=== PATIENT | female | born 1940 | race Caucasian/White ===

== ENCOUNTER 2018-07-24 06:44 | Emergency (ER) | payer OTHER ==
[2018-07-24] MEDS ORDERED: FENTANYL CITR 100 MCG/2 ML ONE (07:19)
[2018-07-24] MEDS ORDERED: ONDANSETRON 4 MG/2 ML VIAL ONE (07:20)
[2018-07-24 07:49] LABS: Absolute Lymphocytes (CBC) 0.8 K/uL (0.7-4.9); Absolute Monocytes 0.4 K/uL (0.1-1.3); Absolute Neutrophil 3.6 K/uL (1.8-8.0); Eosinophils % 9.6 % (0-4.4); Hematocrit 42.7 % (36.0-45.0); Lymphocytes % 14.5 % (15.3-44.8); MCH 29.1 pg (27.0-35.0); MCV 88.6 fL (80-100); MPV 10.5 fL (7.6-11.3); Monocytes % 7.4 % (3.3-12.3); Protime INR 0.93; RBC Red Blood Cell Count 4.82 M/uL (3.86-4.86)
[2018-07-24 08:02] LABS: ALT/SGPT 34 U/L (12-78); AST/SGOT 16 U/L (15-37); Albumin 3.1 g/dL (3.4-5.0); Alkaline Phosphatase 83 U/L (45-117); BUN Blood Urea Nitrogen 11 mg/dL (7-18); Bicarbonate 25 mmol/L (21-32); Bilirubin Direct 0.1 mg/dL (0-0.2); Bilirubin Total 0.4 mg/dL (0.2-1.0); Glucose Level 111 mg/dL (74-106); Magnesium 2.1 mg/dL (1.8-2.4); NT PRO-BNP 126 pg/mL (<450); Potassium 4.2 mmol/L (3.5-5.1); Protein, Total 7.1 g/dL (6.4-8.2); Sodium Level 140 mmol/L (136-145); Troponin (Emerg Dept Use Only) < 0.02 ng/mL (0.0-0.045)
[2018-07-24 08:08] LABS: Urine Blood NEGATIVE (NEG); Urine Glucose NEGATIVE (NEG); Urine Protein NEGATIVE (NEG); Urine Specific Gravity 1.015 (1.005-1.030); Urine pH 6.5 (5.0-7.0)
--- NOTE | 2018-07-24 09:20 | EDPHYS ---
Physician Documentation [facility] Name: Shama Boyer Age: 77 yrs Sex: Female : 1940 Arrival Date: 07/24/2018 Time: 06:46 Bed 8 Private MD: Becky Ambrosio C ED Physician Victoriano Barrett HPI: 07/24 07:42 This 77 yrs old Female presents to ER via Ambulatory with complaints of Back jr8 Pain. 07:42 Onset: The symptoms/episode began/occurred acutely, today. Severity of symptoms: At jr8 their worst the symptoms were moderate, in the emergency department the symptoms are unchanged. The patient has not experienced similar symptoms in the past. The patient has not recently seen a physician. Patient stated that she woke up with right sided scapular pain. Stated that it radiated to right shoulder and had numbness of hand. Denies chest pain, shortness of breath, or nausea. Denies injury to shoulder . Historical: - Allergies: 07:03 No Known Allergies; ea - Home Meds: 07:03 "BP pills" [Active]; " cholesterol pill" [Active]; ea - PMHx: 07:03 Hyperlipidemia; Hypertension; ea - PSHx: 07:03 Cholecystectomy; ea - Immunization history:: Adult Immunizations up to date. - Social history:: Smoking status: Patient/guardian denies using tobacco. - Ebola Screening: : No symptoms or risks identified at this time. ROS: 07:42 Eyes: Negative for injury, pain, redness, and discharge, ENT: Negative for injury, jr8 pain, and discharge, Neck: Negative for injury, pain, and swelling, Cardiovascular: Negative for chest pain, palpitations, and edema, Respiratory: Negative for shortness of breath, cough, wheezing, and pleuritic chest pain, Abdomen/GI: Negative for abdominal pain, nausea, vomiting, diarrhea, and constipation, MS/Extremity: Negative for injury and deformity, Skin: Negative for injury, rash, and discoloration, Neuro: Negative for headache, weakness, numbness, tingling, and seizure. 07:42 Back: Positive for pain at rest, pain with movement, radiated pain, of the right scapular area and right subscapular area. Exam: 07:42 Eyes: Pupils equal round and reactive to light, extra-ocular motions intact. Lids and jr8 lashes normal. Conjunctiva and sclera are non-icteric and not injected. Cornea within normal limits. Periorbital areas with no swelling, redness, or edema. ENT: Nares patent. No nasal discharge, no septal abnormalities noted. Tympanic membranes are normal and external auditory canals are clear. Oropharynx with no redness, swelling, or masses, exudates, or evidence of obstruction, uvula midline. Mucous membranes moist. Neck: Trachea midline, no thyromegaly or masses palpated, and no cervical lymphadenopathy. Supple, full range of motion without nuchal rigidity, or vertebral point tenderness. No Meningismus. Cardiovascular: Regular rate and rhythm with a normal S1 and S2. No gallops, murmurs, or rubs. Normal PMI, no JVD. No pulse deficits. Respiratory: Lungs have equal breath sounds bilaterally, clear to auscultation and percussion. No rales, rhonchi or wheezes noted. No increased work of breathing, no retractions or nasal flaring. Abdomen/GI: Soft, non-tender, with normal bowel sounds. No distension or tympany. No guarding or rebound. No evidence of tenderness throughout. Skin: Warm, dry with normal turgor. Normal color with no rashes, no lesions, and no evidence of cellulitis. MS/ Extremity: Pulses equal, no cyanosis. Neurovascular intact. Full, normal range of motion. Neuro: Awake and alert, GCS 15, oriented to person, place, time, and situation. Cranial nerves II-XII grossly intact. Motor strength 5/5 in all extremities. Sensory grossly intact. Cerebellar exam normal. Normal gait. 07:42 Back: pain, that is mild, of the right subscapular area, ROM is normal, normal spinal alignment noted, CVA tenderness, is absent, vertebral tenderness, is not appreciated, muscle spasm, is not present. 09:20 ECG was reviewed by the Attending Physician. [facility] Vital Signs: 07:03 BP 176 / 85; Pulse 77; Resp 18; Temp 97.7; Pulse Ox 99% on R/A; Weight 76.66 kg; Height ea 5 ft. 1 in. (154.94 cm); Pain 5/10; 07:59 BP 150 / 57; Pulse 64; Resp 16; Pulse Ox 95% ; bp 09:00 BP 136 / 65; Pulse 57; Resp 16; Pulse Ox 93% ; bp 07:03 Body Mass Index 31.93 (76.66 kg, 154.94 cm) ea MDM: 06:49 Patient medically screened. [facility] 09:18 Differential diagnosis: chronic back pain, sprain, TN, Abnormal EKG. Data reviewed: [facility] vital signs, nurses notes, lab test result(s), EKG, radiologic studies, plain films. Data interpreted: Pulse oximetry: on room air is 95 %. Interpretation: normal. Counseling: I had a detailed discussion with the patient and/or guardian regarding: the historical points, exam findings, and any diagnostic results supporting the discharge/admit diagnosis, lab results, radiology results, the need for outpatient follow up, a family practitioner, to return to the emergency department if symptoms worsen or persist or if there are any questions or concerns that arise at home. Response to treatment: the patient's symptoms have markedly improved after treatment. 07/24 07:05 Order name: Basic Metabolic Panel; Complete Time: 09:03 [facility] 07/24 07:05 Order name: CBC with Diff; Complete Time: 09:03 [facility] 07/24 07:05 Order name: LFT's; Complete Time: 09:03 [facility] 07/24 07:05 Order name: Magnesium; Complete Time: 09:03 [facility] 07/24 07:05 Order name: NT PRO-BNP; Complete Time: 09:03 [facility] 07/24 07:05 Order name: PT-INR; Complete Time: 09:03 [facility] 07/24 07:05 Order name: Troponin (emerg Dept Use Only); Complete Time: 09:03 [facility] 07/24 07:05 Order name: XRAY Chest (1 view) [facility] 07/24 07:05 Order name: EKG; Complete Time: 07:06 [facility] 07/24 07:05 Order name: Cardiac monitoring; Complete Time: 07:32 [facility] 07/24 07:05 Order name: EKG - Nurse/Tech; Complete Time: 07: [facility] 07/24 07:58 Order name: Urine Dipstick--Ancillary (enter results); Complete Time: 09:03 07/24 07:05 Order name: IV Saline Lock; Complete Time: 07:32 [facility] 07/24 07:05 Order name: Labs collected and sent; Complete Time: 07:32 jr8 07/24 07:05 Order name: O2 Per Protocol; Complete Time: jr8 07/24 07:05 Order name: O2 Sat Monitoring; Complete Time: 8 EC:20 Rate is 67 beats/min. Rhythm is regular, Normal Sinus Rhythm. QRS [place] is Normal. [place] jr8 interval is normal at 186 msec. QRS interval is prolonged at 132 msec. QT interval is normal at 436 msec. No Q waves. T waves are Inverted in leads III, aVF, V1, V2, V3. No ST changes noted. Clinical impression: NSR w/ Non-specific ST/T Changes. Interpreted by me. Reviewed by me. Administered Medications: 07:15 Drug: fentaNYL (PF) 25 mcg Route: IVP; Site: right forearm; bp 07:42 Follow up: Response: Pain is decreased bp 07:15 Drug: Zofran 4 mg Route: IVP; Site: right forearm; bp 07:42 Follow up: Response: Pain is decreased bp Disposition: 19:06 Co-signature as Attending Physician, Victoriano Barrett MD. rn Disposition: 07/24/18 09:19 Discharged to Home. Impression: Muscle spasm of back. - Condition is Stable. - Discharge Instructions: Muscle Cramps and Spasms, Back Exercises, [id number], Heat Therapy. - Medication Reconciliation Form, Thank You Letter, Antibiotic Education, Prescription Opioid Use form. - Follow up: Becky Ambrosio MD; When: 2 - 3 days; Reason: Recheck today's complaints, Continuance of care, Re-evaluation by your physician. - Problem is new. - Symptoms have improved. Signatures: Dispatcher [employer] EDMS Victoriano Barrett MD MD rn Roszak, Josh, PA PA jr8 Missy Rosa RN RN ea Peltier, Brian RN RN bp Corrections: (The following items were deleted from the chart) 09:30 09:19 07/24/2018 09:19 Discharged to Home. Impression: Muscle spasm of back. Condition bp is Stable. Forms are Medication Reconciliation Form, Thank You Letter, Antibiotic Education, Prescription Opioid Use. Follow up: Becky Ambrosio; When: 2 - 3 days; Reason: Recheck today's complaints, Continuance of care, Re-evaluation by your physician. Problem is new. Symptoms have improved. jr8
--- NOTE | 2018-07-24 09:20 | ER ---
Nurse's Notes [facility] Name: Shama Boyer Age: 77 yrs Sex: Female : 1940 Arrival Date: 07/24/2018 Time: 06:46 Bed 8 Private MD: Becky Ambrosio C Diagnosis: Muscle spasm of back Presentation: 07/24 06:54 Presenting complaint: Patient states: Pt reports she woke up multiple times last night ea with pain in right side of back. Pt reports cough and right hand numbness. Transition of care: patient was not received from another setting of care. Onset of symptoms was July 24, 2018. Risk Assessment: Do you want to hurt yourself or someone else? Patient reports no desire to harm self or others. Initial Sepsis Screen: Does the patient meet any 2 criteria? No. Patient's initial sepsis screen is negative. Does the patient have a suspected source of infection? No. Patient's initial sepsis screen is negative. Care prior to arrival: aspirin x 2. 06:54 Method Of Arrival: Ambulatory ea 06:54 Acuity: REY 3 ea Triage Assessment: 06:59 General: Appears in no apparent distress. Behavior is calm, cooperative, appropriate ea for age. Pain: Complains of pain in right scapular area, right subscapular area, right mid back and right low back. Neuro: Level of Consciousness is awake, alert, obeys commands, Oriented to person, place, time, situation. Cardiovascular: Patient's skin is warm and dry. Cardiovascular: Denies chest pain. Respiratory: Airway is patent Respiratory effort is even, unlabored, Respiratory pattern is regular, symmetrical. Derm: Skin is pink, warm \\T\\ dry. Musculoskeletal: Circulation, motion, and sensation intact. Historical: - Allergies: 07:03 No Known Allergies; ea - Home Meds: 07:03 "BP pills" [Active]; " cholesterol pill" [Active]; ea - PMHx: 07:03 Hyperlipidemia; Hypertension; ea - PSHx: 07:03 Cholecystectomy; ea - Immunization history:: Adult Immunizations up to date. - Social history:: Smoking status: Patient/guardian denies using tobacco. - Ebola Screening: : No symptoms or risks identified at this time. Screenin:01 Abuse screen: Denies threats or abuse. Nutritional screening: No deficits noted. ea Tuberculosis screening: No symptoms or risk factors identified. Fall Risk None identified. Assessment: 07:00 General: Appears in no apparent distress. comfortable. Pain: Complains of pain in back. bp Neuro: Level of Consciousness is awake, alert, obeys commands, Oriented to person, place, time, situation, Appropriate for age. Cardiovascular: No deficits noted. Respiratory: Airway is patent Respiratory effort is even, unlabored, Respiratory pattern is regular, symmetrical. GI: No signs and/or symptoms were reported involving the gastrointestinal system. : No signs and/or symptoms were reported regarding the genitourinary system. EENT: No deficits noted. Derm: No deficits noted. Musculoskeletal: Circulation, motion, and sensation intact. Range of motion: intact in all extremities. 09:00 Reassessment: ALL CURRENT ORDERS COMPLETED, VS STABLE, RESULTS PENDING. bp 09:29 Reassessment: PT D/C HOME AMBULATORY WITH FAMILY, DX WITH MUSCLE SPASM. bp Vital Signs: 07:03 BP 176 / 85; Pulse 77; Resp 18; Temp 97.7; Pulse Ox 99% on R/A; Weight 76.66 kg; Height ea 5 ft. 1 in. (154.94 cm); Pain 5/10; 07:59 BP 150 / 57; Pulse 64; Resp 16; Pulse Ox 95% ; bp 09:00 BP 136 / 65; Pulse 57; Resp 16; Pulse Ox 93% ; bp 07:03 Body Mass Index 31.93 (76.66 kg, 154.94 cm) ea ED Course: 06:46 Patient arrived in ED. es 06:46 Becky Ambrosio MD is Private Physician. es 06:49 [facility] jr[facility] 06:49 Victoriano Barrett MD is Attending Physician. jr8 06:59 Triage completed. ea 07:04 Kavon Justice, RN is Primary Nurse. bp 07:04 Patient has correct armband on for positive identification. Bed in low position. Call ea light in reach. Side rails up X 1. 07:05 Arm band placed on right wrist. Patient placed in an exam room, on a stretcher, on ea pulse oximetry. 07:10 Inserted saline lock: 20 gauge in right forearm, using aseptic technique. bp 07:26 X-ray completed. Portable x-ray completed in exam room. Patient tolerated procedure ag1 well. 07:27 XRAY Chest (1 view) In Process Unspecified. EDMS 07:34 EKG done, by traffic engineering technician. reviewed by Hernando CAMPOS. 3 09:19 Becky Ambrosio MD is Referral Physician. jr8 09:29 No provider procedures requiring assistance completed. IV discontinued, intact, bp bleeding controlled, No redness/swelling at site. Pressure dressing applied. Administered Medications: 07:15 Drug: fentaNYL (PF) 25 mcg Route: IVP; Site: right forearm; bp 07:42 Follow up: Response: Pain is decreased bp 07:15 Drug: Zofran 4 mg Route: IVP; Site: right forearm; bp 07:42 Follow up: Response: Pain is decreased bp Outcome: 09:19 Discharge ordered by . jr8 09:30 Discharged to home ambulatory, with family. bp 09:30 Condition: stable 09:30 Discharge instructions given to patient, Instructed on discharge instructions, follow up and referral plans. Demonstrated understanding of instructions, follow-up care. 09:30 Patient left the ED. bp Signatures: Dispatcher [employer] EDKS Ludmila Hameed Josh, PA PA jr8 Amaya Yang ag1 Missy Rosa, RN RN Kavon Smith, RN RN Vianney Nguyễn 3
--- NOTE | 2018-07-24 10:16 | EKG ---
Test Date: 2018-07-24 Test Time: 07:27:19 Labor Arbitrator Hearing Office: [facility] MEASUREMENT RESULTS: Intervals: Rate: 67 WV: 186 QRSD: 132 QT: 436 QTc: 460 [place]: P: 47 WV: 186 QRS: -73 T: -14 INTERPRETIVE STATEMENTS: Normal sinus rhythm Left axis deviation Right bundle branch block Abnormal ECG Compared to ECG 07/22/2015 05:59:42 no significant change from previous ECG Electronically Signed On 07-24-18 10:15:57 RN URGENT CARE by Lucas Wallace
--- NOTE | 2018-07-24 10:22 | RAD REPORT ---
EXAM DESCRIPTION: RAD - Chest Single View - 07/24/2018 7:28 am CLINICAL HISTORY: CHEST PAIN Chest pain. COMPARISON: CHEST SINGLE VIEW dated 07/22/2015; CHEST SINGLE VIEW dated 07/21/2015; CHEST PA AND LAT 2 VIEW dated 05/23/2015; CHEST PA AND LAT 2 VIEW dated 10/03/2014 FINDINGS: Portable technique limits examination quality. The lungs are grossly clear. The heart is normal in size. No displaced fractures. IMPRESSION: No acute intrathoracic process suspected.
== END 2018-07-24 09:30 | disposition home or self-care (01) ==
LOC: ER 06:44
DX: M62.830 Muscle spasm of back (principal); I10 Essential (primary) hypertension; E78.5 Hyperlipidemia, unspecified
CPT/HCPCS: 36415; 71045; 80048; 80076; 81003; 83735; 83880; 84484; 85025; 85610; 93005; 96374; 96375; 99284; J2405; J3010

== ENCOUNTER 2019-01-23 12:16 | Emergency (ER) | payer OTHER ==
[2019-01-23 13:09] LABS: Absolute Lymphocytes (CBC) 1.2 K/uL (0.7-4.9); Absolute Monocytes 0.8 K/uL (0.1-1.3); Absolute Neutrophil 3.4 K/uL (1.8-8.0); Basophils % 1.1 % (0-1.3); Eosinophils % 6.4 % (0-4.4); Hematocrit 40.3 % (36.0-45.0); MPV 10.1 fL (7.6-11.3); Monocytes % 13.1 % (3.3-12.3); RBC Red Blood Cell Count 4.59 M/uL (3.86-4.86)
[2019-01-23] MEDS ORDERED: LEVALBUTEROL 1.25 MG/3 ML NEB ONE (13:21)
[2019-01-23] MEDS ORDERED: METHYLPREDNISOLONE 125 MG INJ ONE (13:21)
[2019-01-23] MEDS ORDERED: NA CHLORIDE 0.9% 1,000 ML ONE (13:21)
[2019-01-23] MEDS ORDERED: AZITHROMYCIN 250 MG TAB ONE (13:21)
[2019-01-23] MEDS ORDERED: IPRATROPIUM BROM 0.5MG/2.5ML ONE (13:21)
[2019-01-23] MEDS ORDERED: CEFTRIAXONE/SWI 1gm 1 GM/10 ML SYR ONE (13:21)
--- NOTE | 2019-01-23 13:22 | RAD REPORT ---
EXAM DESCRIPTION: RAD - Chest Single View - 01/23/2019 1:08 pm CLINICAL HISTORY: COUGH Chest pain. COMPARISON: Chest Single View dated 07/24/2018; CHEST SINGLE VIEW dated 07/22/2015; CHEST SINGLE VIE W dated 07/21/2015; CHEST PA AND LAT 2 VIEW dated 05/23/2015 FINDINGS: Portable technique limits examination quality. The lungs are grossly clear. The heart is normal in size. No displaced fractures. IMPRESSION: No acute intrathoracic process suspected.
[2019-01-23 13:31] LABS: ALT/SGPT 91 U/L (12-78); AST/SGOT 74 U/L (15-37); Albumin 2.9 g/dL (3.4-5.0); Alkaline Phosphatase 123 U/L (45-117); BUN Blood Urea Nitrogen 11 mg/dL (7-18); Bicarbonate 25 mmol/L (21-32); Bilirubin Direct 0.2 mg/dL (0-0.2); Bilirubin Total 0.8 mg/dL (0.2-1.0); Glucose Level 92 mg/dL (74-106); NT PRO-BNP 228 pg/mL (<450); Potassium 3.9 mmol/L (3.5-5.1); Protein, Total 7.2 g/dL (6.4-8.2); Sodium Level 140 mmol/L (136-145); Troponin (Emerg Dept Use Only) < 0.02 ng/mL (0.0-0.045)
[2019-01-23 13:38] LABS: Protime INR 1.15
--- NOTE | 2019-01-23 14:01 | EDPHYS ---
Physician Documentation [facility] Name: Shama Boyer Age: 78 yrs Sex: Female : 1940 Arrival Date: 01/23/2019 Time: 12:17 Bed 5 Private MD: Becky Ambrosio C ED Physician Abhishek Lomeli HPI: 01/23 12:47 This 78 yrs old Female presents to ER via Ambulatory with complaints of willy Cough, Shortness Of Breath. 12:47 The patient or guardian reports cough, difficulty breathing, flu symptoms, arthralgias, willy low-grade fever, myalgias. Onset: The symptoms/episode began/occurred 2 day(s) ago. Severity of symptoms: At their worst the symptoms were mild. Modifying factors: The symptoms are alleviated by nothing, the symptoms are aggravated by nothing. Associated signs and symptoms: The patient has no apparent associated signs or symptoms. The patient has not experienced similar symptoms in the past. Historical: - Allergies: 12:38 No Known Allergies; iw - Home Meds: 12:38 "BP pills" daily [Active]; iw - PMHx: 12:38 Hyperlipidemia; Hypertension; iw - PSHx: 12:38 Cholecystectomy; Tubal ligation; iw - Immunization history:: Adult Immunizations not up to date. - Social history:: Smoking status: Patient/guardian denies using tobacco. - Ebola Screening: : Patient negative for fever greater than or equal to 101.5 degrees Fahrenheit, and additional compatible Ebola Virus Disease symptoms Patient denies exposure to infectious person Patient denies travel to an Ebola-affected area in the 21 days before illness onset No symptoms or risks identified at this time. ROS: 12:48 Constitutional: Negative for fever, chills, and weight loss, Eyes: Negative for injury, willy pain, redness, and discharge, ENT: Negative for injury, pain, and discharge, Neck: Negative for injury, pain, and swelling, Cardiovascular: Negative for chest pain, palpitations, and edema, Abdomen/GI: Negative for abdominal pain, nausea, vomiting, diarrhea, and constipation, Back: Negative for injury and pain, : Negative for injury, bleeding, discharge, and swelling, MS/Extremity: Negative for injury and deformity, Skin: Negative for injury, rash, and discoloration, Neuro: Negative for headache, weakness, numbness, tingling, and seizure, Psych: Negative for depression, anxiety, suicide ideation, homicidal ideation, and hallucinations, Allergy/Immunology: Negative for hives, rash, and allergies, Endocrine: Negative for neck swelling, polydipsia, polyuria, polyphagia, and marked weight changes. 12:48 Respiratory: Positive for cough, shortness of breath, wheezing, expiratory. 12:48 MS/extremity: Negative for acute changes. Exam: 12:48 Constitutional: This is a well developed, well nourished patient who is awake, alert, willy and in no acute distress. Head/Face: Normocephalic, atraumatic. Eyes: Pupils equal round and reactive to light, extra-ocular motions intact. Lids and lashes normal. Conjunctiva and sclera are non-icteric and not injected. Cornea within normal limits. Periorbital areas with no swelling, redness, or edema. ENT: Nares patent. No nasal discharge, no septal abnormalities noted. Tympanic membranes are normal and external auditory canals are clear. Oropharynx with no redness, swelling, or masses, exudates, or evidence of obstruction, uvula midline. Mucous membranes moist. Neck: Trachea midline, no thyromegaly or masses palpated, and no cervical lymphadenopathy. Supple, full range of motion without nuchal rigidity, or vertebral point tenderness. No Meningismus. Chest/axilla: Normal chest wall appearance and motion. Nontender with no deformity. No lesions are appreciated. Cardiovascular: Regular rate and rhythm with a normal S1 and S2. No gallops, murmurs, or rubs. Normal PMI, no JVD. No pulse deficits. Respiratory: Lungs have equal breath sounds bilaterally, clear to auscultation and percussion. No rales, rhonchi or wheezes noted. No increased work of breathing, no retractions or nasal flaring. Abdomen/GI: Soft, non-tender, with normal bowel sounds. No distension or tympany. No guarding or rebound. No evidence of tenderness throughout. Back: No spinal tenderness. No costovertebral tenderness. Full range of motion. Female : Normal external genitalia. Skin: Warm, dry with normal turgor. Normal color with no rashes, no lesions, and no evidence of cellulitis. MS/ Extremity: Pulses equal, no cyanosis. Neurovascular intact. Full, normal range of motion. Neuro: Awake and alert, GCS 15, oriented to person, place, time, and situation. Cranial nerves II-XII grossly intact. Motor strength 5/5 in all extremities. Sensory grossly intact. Cerebellar exam normal. Normal gait. 12:48 Musculoskeletal/extremity: ROM: no acute changes, intact in all extremities, Circulation is intact in all extremities. Pulses: are normal with no appreciated deficits, Sensation intact. Compartment Syndrome exam of affected extremity: is normal. DVT Exam: No signs of deep vein thrombosis. no pain, no swelling, no tenderness, negative Homans' sign noted on exam, no appreciated bluish discoloration, no erythema, no increased warmth. Vital Signs: 12:39 BP 134 / 73; Pulse 80; Resp 18 S; Temp 99.5(TE); Pulse Ox 97% on R/A; Weight 77.11 kg; iw Height 5 ft. 0 in. (152.40 cm); Pain 0/10; 13:39 BP 145 / 69; Pulse 69; Resp 18; Pulse Ox 99% on Nebulizer Mask; hj 12:39 Body Mass Index 33.20 (77.11 kg, 152.40 cm) iw MDM: 12:31 Patient medically screened. [facility] 12:50 Data reviewed: vital signs, nurses notes, lab test result(s), EKG, radiologic studies, [facility] plain films. 01/23 12:47 Order name: Basic Metabolic Panel; Complete Time: 13:59 EDSD 01/23 12:47 Order name: CBC with Automated Diff; Complete Time: 13:59 EDSD 01/23 12:47 Order name: Basic Metabolic Panel [facility] 01/23 12:47 Order name: CBC with Diff [facility] 01/23 12:47 Order name: Liver (Hepatic) Function; Complete Time: 13:59 EDSD 01/23 12:47 Order name: Magnesium; Complete Time: 13:59 EDSD 01/23 12:47 Order name: LFT's [facility] 01/23 12:47 Order name: Magnesium [facility] 01/23 12:47 Order name: NT PRO-BNP; Complete Time: 13:59 [facility] 01/23 12:47 Order name: PT-INR; Complete Time: 13:59 [facility] 01/23 12:47 Order name: Troponin (emerg Dept Use Only); Complete Time: 13:59 [facility] 01/23 12:47 Order name: XRAY Chest (1 view); Complete Time: 13:59 [facility] 01/23 12:47 Order name: Blood Culture Adult (2) [facility] 01/23 12:48 Order name: Flu; Complete Time: 13:59 [facility] 01/23 12:47 Order name: EKG; Complete Time: 12:48 [facility] 01/23 12:47 Order name: Cardiac monitoring; Complete Time: 12:49 [facility] 01/23 12:47 Order name: EKG - Nurse/Tech; Complete Time: 13:04 [facility] 01/23 12:47 Order name: IV Saline Lock; Complete Time: 13:04 [facility] 01/23 12:47 Order name: Labs collected and sent; Complete Time: 13:04 [facility] 01/23 12:47 Order name: O2 Per Protocol; Complete Time: 12:49 [facility] 01/23 12:47 Order name: O2 Sat Monitoring; Complete Time: 12:49 [facility] Administered Medications: 13:00 Drug: NS 0.9% 1000 ml Route: IV; Rate: 125 ml/hr; Site: right antecubital; 14:22 Follow up: IV Status: Order to discontinue infusion; IV Intake: 200ml 13:00 Drug: Xopenex 2.5 mg Route: Inhalation; hj 13:00 Drug: AtroVENT Aerosol 0.5 mg Route: Inhalation; hj 13:00 Drug: SOLU-Medrol 125 mg Route: IVP; Site: right antecubital; hj 13:23 Follow up: Response: No adverse reaction 13:31 Drug: Rocephin - (cefTRIAXone) 1 grams Route: IVPB; Infused Over: 30 mins; Site: right hj antecubital; 14:00 Follow up: IV Status: Completed infusion; IV Intake: 10ml 13:31 Drug: Zithromax 500 mg Route: PO; 13:34 Follow up: Response: No adverse reaction Disposition: 01/23/19 14:00 Discharged to Home. Impression: Acute upper respiratory infection, unspecified, Cough. - Condition is Fair. - Discharge Instructions: Acetaminophen Dosage Chart, Pediatric, Upper Respiratory Infection, Adult, Cool Mist Vaporizer, Upper Respiratory Infection, Adult, Wbtl-sm-Tfui, Cough, Adult, Remk-ny-Spoe, Cough, Adult. - Prescriptions for Medrol (Augustine) 4 mg Oral Tablets, Dose Pack - take 1 tablet by ORAL route as directed - follow package instructions; 1 packet. Albuterol Sulfate 90 mcg/actuation - inhale 1-2 puff by INHALATION route every 4-6 hours; 1 Inhaler. Guaifenesin AC 10- 100 mg/5 mL Oral Liquid - take 10 milliliters by ORAL route every 6 hours As needed; 160 milliliter. Zithromax 500 mg Oral Tablet - take 1 tablet by ORAL route once daily for 4 days; 4 tablet. - Medication Reconciliation Form, Thank You Letter, Antibiotic Education, Prescription Opioid Use form. - Follow up: Becky Ambrosio MD; When: 2 - 3 days; Reason: Recheck today's complaints, Continuance of care, Re-evaluation by your physician. - Problem is new. - Symptoms have improved. Signatures: Dispatcher [employer] EDMS Abhishek Lomeli MD MD cha Williams, Irene, RN RN Reji Eason RN RN Corrections: (The following items were deleted from the chart) 14:22 14:00 01/23/2019 14:00 Discharged to Home. Impression: Acute upper respiratory hj infection, unspecified; Cough. Condition is Fair. Forms are Medication Reconciliation Form, Thank You Letter, Antibiotic Education, Prescription Opioid Use. Follow up: Becky Ambrosio; When: 2 - 3 days; Reason: Recheck today's complaints, Continuance of care, Re-evaluation by your physician. Problem is new. Symptoms have improved. willy
--- NOTE | 2019-01-23 14:01 | ER ---
Nurse's Notes [facility] Name: Shama Boyer Age: 78 yrs Sex: Female : 1940 Arrival Date: 01/23/2019 Time: 12:17 Bed 5 Private MD: Becky Ambrosio C Diagnosis: Acute upper respiratory infection, unspecified;Cough Presentation: 01/23 12:34 Presenting complaint: Patient states: productive cough since Friday, no fever, cough is iw worse at night, also feels mild SOB and just doesn't feel good. Transition of care: patient was not received from another setting of care. Onset of symptoms was January 17, 2019. Risk Assessment: Do you want to hurt yourself or someone else? Patient reports no desire to harm self or others. Initial Sepsis Screen: Does the patient meet any 2 criteria? No. Patient's initial sepsis screen is negative. Does the patient have a suspected source of infection? No. Patient's initial sepsis screen is negative. Care prior to arrival: None. 12:34 Method Of Arrival: Ambulatory iw 12:34 Acuity: REY 3 iw Triage Assessment: 13:14 General: Appears in no apparent distress. uncomfortable, Behavior is calm, cooperative, hj appropriate for age. Respiratory: Reports shortness of breath cough that is Onset: The symptoms/episode began/occurred yesterday, the patient has mild shortness of breath. Historical: - Allergies: 12:38 No Known Allergies; iw - Home Meds: 12:38 "BP pills" daily [Active]; iw - PMHx: 12:38 Hyperlipidemia; Hypertension; iw - PSHx: 12:38 Cholecystectomy; Tubal ligation; iw - Immunization history:: Adult Immunizations not up to date. - Social history:: Smoking status: Patient/guardian denies using tobacco. - Ebola Screening: : Patient negative for fever greater than or equal to 101.5 degrees Fahrenheit, and additional compatible Ebola Virus Disease symptoms Patient denies exposure to infectious person Patient denies travel to an Ebola-affected area in the 21 days before illness onset No symptoms or risks identified at this time. Screenin:00 Abuse screen: Denies threats or abuse. Denies injuries from another. Nutritional hj screening: No deficits noted. Tuberculosis screening: No symptoms or risk factors identified. Fall Risk None identified. Assessment: 13:00 Pain: Denies pain. Cardiovascular: Rhythm is regular. Respiratory: Airway is patent hj Respiratory effort is even, unlabored, Respiratory pattern is regular, symmetrical, Breath sounds are clear bilaterally. 13:00 General: Appears in no apparent distress. comfortable, Behavior is calm, cooperative, hj appropriate for age. Neuro: Level of Consciousness is awake, alert, obeys commands, Oriented to person, place, time, situation, Appropriate for age. GI: No signs and/or symptoms were reported involving the gastrointestinal system. : No signs and/or symptoms were reported regarding the genitourinary system. EENT: No signs and/or symptoms were reported regarding the EENT system. Derm: No signs and/or symptoms reported regarding the dermatologic system. Musculoskeletal: No signs and/or symptoms reported regarding the musculoskeletal system. 13:39 Reassessment: Patient and/or family updated on plan of care and expected duration. Pain hj level reassessed. Patient is alert, oriented x 3, equal unlabored respirations, skin warm/dry/pink. breathing tx ongoing;. Vital Signs: 12:39 BP 134 / 73; Pulse 80; Resp 18 S; Temp 99.5(TE); Pulse Ox 97% on R/A; Weight 77.11 kg; iw Height 5 ft. 0 in. (152.40 cm); Pain 0/10; 13:39 BP 145 / 69; Pulse 69; Resp 18; Pulse Ox 99% on Nebulizer Mask; hj 12:39 Body Mass Index 33.20 (77.11 kg, 152.40 cm) iw ED Course: 12:17 Patient arrived in ED. rg4 12:18 Becky Ambrosio MD is Private Physician. rg4 12:27 Reji Eason, SANDRA is Primary Nurse. hj 12:31 Abhishek Lomeli MD is Attending Physician. willy 12:37 Triage completed. iw 12:39 Arm band placed on. iw 13:00 Patient has correct armband on for positive identification. Placed in gown. Bed in low hj position. Call light in reach. Side rails up X 1. Adult w/ patient. 13:00 Initial lab(s) drawn, by me, sent to lab. First set of blood cultures drawn by me. hj 13:05 Initial lab(s) drawn, by ED staff, sent to lab. EKG done, by ED staff, reviewed by ms Abhishek Lomeli MD. 13:07 XRAY Chest (1 view) In Process Unspecified. EDMS 13:12 Flu Sent. 13:12 Inserted saline lock: 20 gauge in right antecubital area, using aseptic technique. hj Blood collected. 13:59 Becky Ambrosio MD is Referral Physician. [facility] 14:21 No provider procedures requiring assistance completed. IV discontinued, intact, hj bleeding controlled, No redness/swelling at site. Pressure dressing applied. Administered Medications: 13:00 Drug: NS 0.9% 1000 ml Route: IV; Rate: 125 ml/hr; Site: right antecubital; hj 14:22 Follow up: IV Status: Order to discontinue infusion; IV Intake: 200ml hj 13:00 Drug: Xopenex 2.5 mg Route: Inhalation; hj 13:00 Drug: AtroVENT Aerosol 0.5 mg Route: Inhalation; hj 13:00 Drug: SOLU-Medrol 125 mg Route: IVP; Site: right antecubital; hj 13:23 Follow up: Response: No adverse reaction hj 13:31 Drug: Rocephin - (cefTRIAXone) 1 grams Route: IVPB; Infused Over: 30 mins; Site: right hj antecubital; 14:00 Follow up: IV Status: Completed infusion; IV Intake: 10ml hj 13:31 Drug: Zithromax 500 mg Route: PO; hj 13:34 Follow up: Response: No adverse reaction hj Intake: 14:00 IV: 10ml; Total: 10ml. hj 14:22 IV: 200ml; Total: 210ml. Outcome: 14:00 Discharge ordered by . [facility] 14:21 Discharged to home ambulatory, with family. 14:21 Condition: stable 14:21 Discharge instructions given to patient, family, Instructed on discharge instructions, follow up and referral plans. medication usage, Demonstrated understanding of instructions, follow-up care, medications, Prescriptions given X 4. 14:22 Patient left the ED. Signatures: Dispatcher [employer] Abhishek Carvajal MD MD cha Williams, Irene, RN Magda Gates ms, Henry, RN RN hj Garcia, Rubi rg4
--- NOTE | 2019-01-24 10:09 | EKG ---
Test Date: 2019-01-23 Test Time: 12:57:03 Smt Machine Operator: MEASUREMENT RESULTS: Intervals: Rate: 74 DC: 178 QRSD: 136 QT: 412 QTc: 457 Ursa: P: 37 DC: 178 QRS: -75 T: 5 INTERPRETIVE STATEMENTS: Sinus rhythm with premature supraventricular complexes Left axis deviation Right bundle branch block Abnormal ECG Compared to ECG 07/24/2018 07:27:19 Atrial premature complex(es) now present Electronically Signed On 01-24-19 10:05:56 CDT by Asad Enamorado
== END 2019-01-23 14:22 | disposition home or self-care (01) ==
LOC: ER 12:16
DX: J06.9 Acute upper respiratory infection, unspecified (principal); E78.5 Hyperlipidemia, unspecified; I10 Essential (primary) hypertension
CPT/HCPCS: 96365; 96361; 93005; 87040 ×2; 85025; 80048; 36415; 83735; 85610; 80076; 84484; 83880; 87804 ×2; 71045; 96375; 99284; J0696; J7030; J2930

== ENCOUNTER 2021-01-22 10:54 | Day surgery (SDC) | payer OTHER ==
[2021-01-18 13:56] LABS: Potassium 4.6 mmol/L (3.5-5.1)
[2021-01-18 14:16] LABS: Basophils % 0.5 % (0-1.3); Hematocrit 37.3 % (36.0-45.0); Lymphocytes % 16.1 % (15.3-44.8); MPV 10.5 fL (7.6-11.3); RBC Red Blood Cell Count 4.18 M/uL (3.86-4.86)
[2021-01-18 14:18] LABS: Protime INR 0.97
[~2021-01-22 10:54] MED LIST: HEPA 1000U/500MLS 2,000 UNIT/1,000 ML BAG IV ONE
[2021-01-22] MEDS ORDERED: NA CHLORIDE 0.9% 500 ML ONE (11:26)
[2021-01-22 11:39] VITALS: TEMP 97
[2021-01-22] MEDS ORDERED: ATROPINE SULF 1 MG/10 ML SYR IV ONE (12:30)
[2021-01-22] MEDS ORDERED: VERAPAMIL HCL 10 MG/4 ML VIAL IV ONE (12:30)
[2021-01-22] MEDS ORDERED: HEPARIN 5000 UNIT/ML 1 ML VIAL ONE (12:30)
[2021-01-22] MEDS ORDERED: NITROGLYCERIN 100 MCG/ML SYR (for cath lab use only) IV ONE (12:30)
[2021-01-22] MEDS ORDERED: MIDAZOLAM HCL 2 MG/2 ML INJ ONE (12:30)
[2021-01-22] MEDS ORDERED: FENTANYL CITR 100 MCG/2 ML ONE (12:30)
[2021-01-22] MEDS ORDERED: NITROGLYCERIN/D5W 25 MG/250 ML BTL IV ONE (12:31)
[2021-01-22 15:05] VITALS: BP 111/54; O2SAT 97
--- NOTE | 2021-01-22 22:32 | OP ---
Date of Procedure: 01/22/2021 Surgeon: MADALYN DUKE Procedures Performed: 1.Selective coronary angiogram. 2.Left heart catheterization. 3.Right heart catheterization. Indication: Persistent dyspnea on exertion, limiting her activities. Description Of Procedure: After risks, benefits, and alternatives were explained, the patient agreed to procedure and signed informed consent. We brought the patient to the cardiac catheterization lab oratory, prepped and draped in usual sterile fashion, then accessed the right IJ using ultrasound elsy dance and micropuncture kit, and placed a 7-Sammarinese sheath and then accessed the right radial artery u sing ultrasound and pediatric micropuncture kit and placed a 6-Sammarinese slender sheath. Then proceeded with a right heart catheterization by passing 7-Sammarinese balloon tip [place] into the RA through the righ t IJ and recorded waveform of pressure, then RV waveform of pressure were recorded and then advanced to the PA and recorded PA waveform of pressure and then took a PA set. Then, advanced the wedge and wedge pressure of waveform and then the [place] was removed. Subsequently, we took a 5-Sammarinese [place] 4.0 catheter into the aortic root through the radial artery over a J-wire, engaged left main and right c oronary artery, took standard views and then removed the catheter and the sheath, and placed TR band with good hemostasis. A 7-Sammarinese sheath removed, it was removed from the IJ and manual pressure was applied with good hemostasis. Findings: 1.Left main, large and normal. 2.LAD, moderate-sized vessel is normal and all the diagonals are normal. 3.Left circumflex, small vessel, normal. 4.RCA, dominant vessel and it is normal. We passed the [place] catheter over the wire into the LV across the aortic valve, recorded LVEDP at 11 mmHg and upon pullback, there was no difference in gradient. Right Heart Catheterization Results: RA pressure was 4. IV pressure was 36/1, mean of 5, PA pressur e was 25, overlying mean of 16, pulmonary wedge was 6, LVEDP was 11 mmHg. Conclusion: 1.Normal coronary arteries. 2.Normal filling pressures. Recommendations: Medical management and look for other reasons for shortness of breath, like COPD. We will refer the patient to Pulmonary. SR/MODL Voice ID: [id number] Report ID: [id number]
== END 2021-01-22 15:10 | disposition home or self-care (01) ==
LOC: CCL 10:54
PROVIDERS: ATTEND Internal Medicine
DX: R06.00 Dyspnea, unspecified (principal); I11.0 Hypertensive heart disease with heart failure; I50.32 Chronic diastolic (congestive) heart failure; E78.5 Hyperlipidemia, unspecified; Z20.822 Contact with and (suspected) exposure to COVID-19
CPT/HCPCS: 93005; 85025; 80048; 36415; 85610; 85730; 93460; C1893; J1644 ×2; J2250; J3010; J7040; U0002

== ENCOUNTER 2021-10-11 17:51 | Inpatient (IN) | payer OTHER ==
--- OUTSIDE RECORDS SUMMARY | 2021-10-11 19:15 | XMS REPORT | Continuity of Care Document ---
:1940 Author Organization [facility] t Address [address] [place] [address] Care Team Providers Name Role Phone Phillip Ambrosio Primary Care Physician Becky FIGUEROA Attending Clinician Unavailable Therapy, Covid Infusion Attending Clinician Unavailable Henry DALEY, Becky Attending Clinician Payers Payer Name Policy Type Policy Number Effective Date Expiration Date Jose Martin barclay MEDICARE PART A [id number] 2003 \T\ B 00:00:00 Problems This patient has no known problems. Allergies, Adverse Reactions, Alerts Allergy Allergy Status Severity Reaction(s) Onset Inactive Treating Comm ents Source Name Type Date Date Clinician NO KNOWN Drug Active [facility] ALLERGIE Class ity of [facility] Social History Social Habit Start Date Stop Date Quantity Comments Source Sex Assigned At [birth year] [facility] 00:00:00 00:00:00 [facility] Smoking Status Start Date Stop Date Source Unknown if ever smoked [facility] Medications Ordered Filled Start Stop Current Ordering Indication Dosage Frequency Signature Comments Components Source Medication Medication Date Date Medication? Clinician (SIG) Name Name casirivimab 2020- No [id number] 1200mg 1,200 mg, Univers -imdevimab 04-26 IV ity of 1200 mg in 22:30: 21:45 Infusion, [place] 60 mL NS 00 :00 ONCE, Medical MINI-BAG Administer Branc h over 20 Minutes, Ana 04/26/21 at 1730, For 1 dose
Ad rehabilitation aide/scheduler as an IV infusion via pump or gravity through an intravenou s line containing a sterile, in-line or add-on 0.2-micron polyethers ulfone (PES) filter. Stable 36 hours refrigerat ed; 4 hours at room temperatur e.
casirivimab 2020- No [id number] 1200mg 1,200 mg, [facility] -imdevimab 04-26 IV ity of 1200 mg in 22:30: 21:45 Infusion, [place] 60 mL NS 00 :00 ONCE, Medical MINI-BAG Administer Branc h over 20 Minutes, Ana 04/26/21 at 1730, For 1 dose
Ad rehabilitation aide/scheduler as an IV infusion via pump or gravity through an intravenou s line containing a sterile, in-line or add-on 0.2-micron polyethers ulfone (PES) filter. Stable 36 hours refrigerat ed; 4 hours at room temperatur e.
Vital Signs Vital Name Observation Time Observation Value Comments Source Systolic blood 2021-04-26 22:40:00 130 mm[facility]Hg[facility] Diastolic blood 2021-04-26 22:40:00 62 mm[facility]Hg[facility] rate 2021-04-26 22:40:00 89 /min [facility] Body temperature 2021-04-26 22:40:00 36.17 [facility] Respiratory rate 2021-04-26 22:40:00 20 /min [facility] Oxygen saturation in 2021-04-26 22:40:00 95 /min [facility] Pulse oximetry [place] Body height 2021-04-26 21:24:00 152.4 cm [facility] Body weight 2021-04-26 21:24:00 70.308 kg [facility] BMI 2021-04-26 21:24:00 30.27 kg/m2 [facility] Procedures This patient has no known procedures. Encounters Start End Encounter Admission Attending Care Care Encounter Source Date/Time Date/Time Type Type Clinicians Facility Department ID 2021-04-26 2021-04-26 Outpatient Nilam FIGUEROA [facility] [id number] [facility] 15:30:00 15:30:00 [facility] 2021-04-26 2021-04-26 Nurse Therapy, Adc Covid Infusion [facility] [id number] [facility] 14:29:20 15:29:20 Visit Butch Figueroa [id number] porsha [facility] [id number] [facility] [id number] [facility] [address] Results This patient has no known results.
[2021-10-11 20:20] VITALS: BMI 30.3
[2021-10-11 21:25] LABS: Absolute Lymphocytes (CBC) 1.1 K/uL (0.7-4.9); Hematocrit 39.6 % (36.0-45.0); Lymphocytes % 17.7 % (15.3-44.8); MPV 10.3 fL (7.6-11.3); RBC Red Blood Cell Count 4.52 M/uL (3.86-4.86)
--- NOTE | 2021-10-11 21:55 | RAD REPORT ---
EXAM DESCRIPTION: RAD - Chest Pa And Lat (2 Views) - 10/11/2021 9:14 pm CLINICAL HISTORY: Afib COMPARISON: Chest Pa And Lat (2 Views) dated 10/20/2020; Chest Single View dated 01/23/2019; Chest Sin gle View dated 07/24/2018; CHEST SINGLE VIEW dated 07/22/2015 FINDINGS: Lines: None. Lungs: No evidence of edema or pneumonia. Pleural: No significant pleural effusions or pneumothorax. Cardiac: The heart size is within normal limits. Bones: No acute fractures. Kyphoplasty changes in the lower thoracic spine. Other: IMPRESSION: No acute cardiopulmonary disease.
[2021-10-11 22:31] LABS: Bilirubin Total 0.4 mg/dL (0.2-1.0); Phosphorus 3.3 mg/dL (2.5-4.9); Potassium 3.8 mmol/L (3.5-5.1); Protein, Total 6.6 g/dL (6.4-8.2)
[2021-10-11 22:32] LABS: Thyroid Stimulating Hormone 4.11 uIU/mL (0.360-3.740)
[2021-10-11] MEDS: DIGOXIN 0.25 MG/ML AMP IV SCH (22:51)
[2021-10-11] MEDS: carvediloL 6.25 MG TAB PO SCH (22:52)
[2021-10-11] MEDS: APIXABAN 5 MG TABLET PO SCH (22:54)
[2021-10-12] MEDS ORDERED: INFLUENZA VACCINE (for 6+ mo) 0.5 ML DOSE IMVAC ONE (08:00)
[2021-10-12] MEDS ORDERED: PNEUMOCOCCAL VACCINE 0.5 ML IMVAC ONE (08:00)
[2021-10-12 08:30] LABS: BUN Blood Urea Nitrogen 21 mg/dL (7-18); Bicarbonate 26 mmol/L (21-32); Glucose Level 96 mg/dL (74-106); Sodium Level 139 mmol/L (136-145)
[2021-10-12] MEDS ORDERED: POTASSIUM CL SA 10 MEQ TAB PO ONE (09:00)
[2021-10-12] MEDS: carvediloL 6.25 MG TAB PO SCH (09:08)
[2021-10-12] MEDS: APIXABAN 5 MG TABLET PO SCH ×2 (09:08→21:20)
[2021-10-12] MEDS ORDERED: predniSONE 10 MG TAB PO ONE (10:08)
[2021-10-12] MEDS ORDERED: HOME MED 1 EA UNK (Fluticasone/Vilanterol [Breo Ellipta 200-25 Mcg Inh] Blst.W.Dev) IH SCH (11:00)
[2021-10-12 17:10] LABS: Magnesium 1.7
[2021-10-12] MEDS: SOTALOL HCL 80 MG TAB PO SCH (18:10)
[2021-10-12] MEDS: DIGOXIN 0.25 MG/ML AMP IV SCH (21:00)
[2021-10-12] MEDS ORDERED: ATORVASTATIN 20 MG TAB PO SCH (21:00)
--- NOTE | 2021-10-12 21:37 | CON ---
Date of Consultation: 10/12/2021 Reason For Consultation: New onset atrial fibrillation. History Of Present Illness: 81-year-old female, well known to me, has a diastolic congestive heart f ailure, hypertension, and possible COPD or asthma. She was evaluated by Dr. Ambrosio in the office where she was found to be in atrial fibrillation with rapid ventricular response. She was sent to the [facility] and the patient always has shortness of breath on exertion and she is being followed by Pulmona fermin and myself and she has been on diuretics, but symptoms can get worse periodically and she denies h aving any chest pain or palpitations. Past Medical History: As outlined above in the HPI. Medications: Refer reconciliation sheet for detailed list. Allergies: NO KNOWN DRUG ALLERGIES. Family History: No premature coronary artery disease or cancer. Social History: Does not smoke or drink. Does not use any drugs. Review of Systems: All systems reviewed and they were negative except as mentioned in the HPI. Physical Examination: Vital Signs: Reviewed. Head and Neck: Pupils are equal and reactive to light. Intact eye movements. No JVD. No cervical lymphadenopathy. Neck: Supple. Thyroid is not enlarged. Lungs: Clear to auscultation bilaterally. No rhonchi, rales, or crackles. No accessory muscle use. Heart: Irregularly irregular. No extra sounds. Abdomen: Soft and nontender. Bowel sounds positive. No organomegaly. No masses or hernia. No rig idity or rebound. Extremities: No edema, clubbing, or cyanosis. Intact pulses. Skin: No rashes. Neurologic: Neuro: Alert, awake, oriented x3. No acute focal deficits appreciated. Investigation: Labs reviewed. Assessment And Recommendations: 1.New onset atrial fibrillation. Recommend to start sotalol 80 mg twice a day and hold Coreg. Cont inue Eliquis and if need be to control the heart rate, then use metoprolol IV 5 mg every 1 hour as ne eded. 2.Shortness of breath, likely due to diastolic heart failure. Continue diuretics. Thank you for the consult. /MILLIE Voice ID: [id number] Report ID: [id number]
--- NOTE | 2021-10-13 04:03 | HP ---
Date of Admission: 10/11/2021 Chief Complaint: Cough, shortness of breath. History Of Present Illness: This is an 81-year-old very pleasant female patient who came into office today for regular followup visit and she informed me that she has this ongoing cough, some chest con gestion and shortness of breath going on for last almost 1 year or so. She has been seeing Dr. Jenny beasley from Pulmonary Service as well as Dr. Duque from Cardiology. She has had workup done so far for her cough, shortness of breath and she was told to have some diastolic congestive heart failure and she has been taking diuretic medication and beta moe therapy as prescribed and also inhaler, whic h is Breo as prescribed by Dr. Lea, and so far her symptoms have not improved at all. On 2021, she had acute bronchitis type of symptoms and she was treated with antibiotics, which was amoxicillin and she was given 9 days of tapering dose of prednisone and when she came to see me toda y she informed me that when she took that prednisone, that is the best relief she had with her cough, congestion, and shortness of breath problem, but after she stopped her prednisone slowly, her sympto ms have returned. Today, when she came to office, we detected that her heart rate was 132 per minute , irregular, and she was not aware of this. She does not have any chest pain or palpitations. No di zziness and decision was made to admit her to hospital for further evaluation and management of this new-onset atrial fibrillation Allergies: NO KNOWN ALLERGIES. Medications: 1.Atorvastatin 20 mg daily. 2.Breo 1 puff daily. 3.Amlodipine 5 mg daily. 4.Aspirin 81 mg daily. 5.Carvedilol 3.125 mg 2 times a day. 6.Furosemide 20 mg daily. 7.Losartan 100 mg daily. 8.Spironolactone 25 mg daily. 9.Albuterol inhaler as needed. Review of Systems: Respiratory: As mentioned above. All other systems reviewed and negative. Past Medical History: Significant for impaired fasting glucose, hypertension, hyperlipidemia, chroni c diastolic heart failure, gastroesophageal reflux disease, diverticulosis, thrombocytopenia, depress ion. Past Surgical History: Tonsillectomy, tubal ligation, D and C, kyphoplasty in June 2020, and arth roscopic knee surgery. Family History: Father had hypertension and in motor vehicular accident. Mother and had c oronary artery disease. Brother with pancreatic cancer. Social History: Prior history of smoking, not at present time. Use of alcohol, negative. Physical Examination: VITAL SIGNS: Height 5 feet, weight 155 pounds, temperature 97.6, pulse 88, respiratory rate 18, bloo d pressure 102/72, oxygen saturation 95% on room air, but at office, heart rate was 132, irregularly irregular. General: Awake, alert, oriented, not in distress. HEENT: Head atraumatic, normocephalic. Conjunctivae nonerythematous. Sclerae white. Mouth, no thr ush or edema noted. Ears/Nose, no mass, lesion, discharge noted. Neck: Supple. No JVD, lymph nodes, bruit, thyromegaly noted. Lungs: Bilateral good equal air entry. Clear to auscultation. No rhonchi. No rales. Heart: Normal heart sounds, no murmur or gallop. Abdomen: Soft, bowel sounds normal. No guarding, rigidity, tenderness, mass, hepatosplenomegaly, dis tention, or bruit noted. Extremities: No leg edema. No calf tenderness. Skin: No rash, ulcer, cellulitis. Lymphatics: No lymph node enlargement in neck, supraclavicular, infraclavicular region. Neuro: No focal neurological deficit. Chest: Unremarkable. External Genitalia: Deferred. Rectal: Deferred. Laboratory Data: EKG; atrial fibrillation with rapid ventricular rate. White count 6, hemoglobin 12 .6, platelets 233. Sodium 139, potassium 3.8, chloride 106, bicarb 26, BUN 21, creatinine 0.82, gluc ose 101. Liver function tests unremarkable. ProBNP 1279. TSH 4.1. COVID-19 test negative. Chest x-ray, no acute cardiopulmonary changes. Impression: 1.Atrial fibrillation, new onset, with rapid ventricular rate. 2.Hypertension. 3.Chronic diastolic heart failure. 4.Hyperlipidemia. 5.Impaired fasting glucose. 6.Rule out asthma. 7.Gastroesophageal reflux disease. 8.Diverticulosis. Plan: We will go ahead and admit the patient to hospital for further evaluation and management of th is problem. The patient is appropriate for inpatient and [facility] I will go ahead and increase dose of her carvedilol to 6.25 mg 2 times a day, digoxin 0.25 mg IV x1 dose was ordered to be given tonight and we will start the patient on anticoagulation therapy ryan [place]. I did discuss with her regarding risks, benefits of anticoagulation therapy with atrial f ibrillation. We will consult Cardiology, get echo with Doppler done tomorrow morning and we will con tinue home medications per order. Details and plan of treatment discussed with the patient. NORM/MILLIE Voice ID: [id number]
[2021-10-13] MEDS: SOTALOL HCL 80 MG TAB PO SCH ×2 (06:09→18:33)
[2021-10-13] MEDS ORDERED: Fluticasone/Vilanterol [Breo Ellipta 200-25 Mcg Inh] Blst.W.Dev IH SCH (09:00)
[2021-10-13] MEDS ORDERED: predniSONE 10 MG TAB PO SCH (09:00)
[2021-10-13] MEDS: APIXABAN 5 MG TABLET PO SCH (09:06)
--- NOTE | 2021-10-13 14:19 | PN ---
Date of Progress Note: 10/12/2021 Subjective: Patient was seen this morning for followup. She was lying in bed, not in any distress. No new complaints or problems reported by her. Objective: Vital Signs: Reviewed. HEENT: Examination unremarkable. Lungs: Clear to auscultation. Not in any respiratory distress. Heart: Sounds normal. Abdomen: Soft. Bowel sounds normal. No guarding, rigidity, tenderness, or distention. Extremities: No leg edema. Laboratory Data: Sodium 139, potassium 4, chloride 108, bicarb 26, BUN 21, creatinine 0.60. Glucose 96. Impression: 1.Atrial fibrillation. 2.Chronic cough. 3.Hypertension. 4.Hyperlipidemia. 5.Rule out asthma. 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 Duque did evaluate her and communicated with me and recommended f or the patient to be started on sotalol and we will discontinue carvedilol. Patient is already on El iquis, which was started yesterday and we will continue that. Plan is to discharge her to go home to [place] after 3 doses of sotalol and we will go ahead and monitor her on telemetry and also get an EKG done tomorrow. I have discussed with her regarding the risk, benefit of chronic steroid therapy and considering it has provided her great relief with recent use, she is willing to take low-dose prednisone as a maintenance therapy and we will start 10 mg lala y. NORM/MODL Voice ID: [id number] Report ID: [id number]
[2021-10-13 16:37] VITALS: BP 128/77; TEMP 97.3
--- NOTE | 2021-10-13 17:57 | PN ---
Date of Progress Note: 10/13/2021 Subjective: Seen by bedside. She is doing clinically better. No chest pain. Minimum shortness of breath is present. No nausea, vomiting, or diarrhea. No abdominal pain. No dysuria, pyuria, or urg ency. All other systems reviewed and they are negative. Physical Examination: Vital Signs: Reviewed. Head and Neck: Pupils are equal and reactive to light. Intact eye movements. No JVD. No cervical lymphadenopathy. Neck is supple. Thyroid is not enlarged. Lungs: Rhonchi bilaterally. No accessory muscle use. No muscle retraction. Heart: Irregularly irregular. No extra sounds. Abdomen: Soft, nontender. Bowel sounds positive. No organomegaly. No masses or hernia. No rigidi ty or rebound. Extremities: No clubbing or cyanosis. Intact pulses. Skin: No rashes. Neurologic: Alert, awake, and oriented x3. No acute focal deficits appreciated. Investigations: White blood cell count 6, hemoglobin 12.6, and platelet count is 233. Sodium 139, B UN 21, and creatinine 0.6. Assessment And Recommendations: 1.Atrial fibrillation, rate is controlled, now on sotalol. Likely she will convert to sinus rhythm. Continue that and continue Eliquis. 2.Shortness of breath, likely due to a hyperreactive airway disease plus a mild case of diastolic he art failure and clinically stable from that regard. Please have the patient follow up with me in the office within a week post dischar ge. HAM/MILLIE Voice ID: [id number] Report ID: [id number]
[2021-10-13 18:37] VITALS: O2SAT 96
--- NOTE | 2021-10-14 07:01 | DS ---
Date of Discharge: 10/13/2021 Disposition: The patient will be discharged to go home. Physical Examination: HEENT: Unremarkable. Lungs: Clear to auscultation. Heart: Heart sounds normal. Abdomen: Soft, bowel sounds normal. No guarding, rigidity, tenderness, or distention. Extremities: No leg edema. Laboratory Data: White count 6, hemoglobin 12.6, platelets 233. Yesterday's chemistry, sodium 139, potassium 4, chloride 108, bicarb 26, BUN 21, creatinine 0.60, glucose 96. Her TSH was 4.1 day befor e yesterday and proBNP 1279. Liver function tests unremarkable. Chest x-ray, no acute cardiopulmona ry changes. EKG, atrial fibrillation with rapid ventricular rate. Final Diagnoses: 1.Atrial fibrillation, new onset, with rapid ventricular rate. 2.Hypertension. 3.Chronic diastolic heart failure. 4.Hyperlipidemia. 5.Impaired fasting glucose. 6.Rule out asthma. 7.Gastroesophageal reflux disease. 8.Diverticulosis. Discharge Medications/instructions: Continue all prior home medications except following changes, 1.Stop amlodipine and stop spironolactone. 2.Start sotalol 80 mg take 1 tablet by mouth 2 times a day. 3.Start Eliquis 5 mg take 1 tablet by mouth 2 times a day. 4.Start prednisone 10 mg take 1 tablet by mouth daily with food. 5.Follow up at my office on , which is 10/18/2021 at 11 a.m. Hospital Course: This is an 81-year-old female patient admitted to the hospital with new-onset atria l fibrillation with rapid ventricular rate. Please see dictated H and P for more information. After patient was evaluated, she was admitted to the hospital and she was kept on athletic monitor. Her initial blood work showed normal electrolytes and renal function. She was seen in consultation by ca rdiologist, Dr. Duque and he suggested to start the patient on sotalol 80 mg 2 times a day and she r eceived her first dose yesterday evening, second dose was this morning, and after she receives her th ird dose this evening, she will be discharged to go home. She continues to remain on telemetry and s till in atrial fibrillation, but her heart rate is well controlled now in 70-80 heart beats per minut e. EKG was done today and results reviewed. Overall, she feels better. Yesterday, I had a discussi on with her regarding long-term use of chronic steroid therapy and long-term use and its side effect discussed with her, but at the same time with her cough and shortness of breath also was d iscussed and she is willing to try that, so we will start her on 10 mg daily and as outpatient we kendall l decide if we can reduce to the lowest possible effective dose for her. Echocardiogram had shown no rmal ejection fraction. If she continues to stay in atrial fibrillation, then in about a month or so electrical cardioversion will be considered by electron gun assembler. The patient was given appropriate inst ruction today when I saw her that she needs to take appropriate precautions to avoid any injury, any cuts on the skin, or any fall or head injury and she should report to emergency room if she has any h ead injury or if she has any bleeding from any skin cuts or any nosebleed or blood in stool, blood in the urine, etc. Appropriate precautions to be taken to avoid any fall and head injury and all those details were discussed with her today. NORM/MODL Voice ID: [id number] Report ID: [id number]
--- NOTE | 2021-10-15 08:53 | ECHO ---
HEIGHT: 5 ft 0 in WEIGHT: 155 lb 3.2 oz DATE OF STUDY: 10/12/[address]: Cresencio Ambrosio MD 2-DIMENSIONAL: YES M.MODE: YES DOPPLER: YES COLOR FLOW: YES TDS: NO PORTABLE: NO DEFINITY: NO BUBBLE STUDY: NO DIAGNOSIS: ATRIAL FIBRILLATION CARDIAC HISTORY: CATHERIZATION: NO SURGERY: NO PROSTHETIC VALVE: NO PACEMAKER: NO MEASUREMENTS (cm) DIASTOLIC (NORMALS) SYSTOLIC (NORMALS) IVSd 1.1 (0.6-1.2) LA Diam 2.1 (1.9-4.0) LVEF 55-60% LVIDd 3.9 (3.5-5.7) LVIDs 2.5 (2.0-3.5) %FS 37% LVPWd 1.1 (0.6-1.2) Ao Diam 2.3 (2.0-3.7) 2 DIMENSIONAL ASSESSMENT: RIGHT ATRIUM: NORMAL LEFT ATRIUM: NORMAL RIGHT VENTRICLE: NORMAL LEFT VENTRICLE: NORMAL TRICUSPID VALVE: MILD TRICUSPID REGURGITATION MITRAL VALVE: MILD MITRAL REGURGITATION, WITH MITRAL ANNULAR CALCIFICATION PULMONIC VALVE: NORMAL AORTIC VALVE: NORMAL PERICARDIAL EFFUSION: NONE AORTIC ROOT: NORMAL LEFT VENTRICULAR WALL MOTION: NORMAL. DOPPLER/COLOR FLOW: SEE BELOW. COMMENTS: NORMAL LEFT VENTRICULAR EJECTION FRACTION 55-60%. ATRIAL FIBRILLATION. MILD MITRAL AND TRICUSPID REGURGITATION. TECHNOLOGIST: TIFFANIE BARCENAS
== END 2021-10-13 18:51 | disposition home or self-care (01) | DRG 309 ==
LOC: 2ND 19:13
PROVIDERS: ADMIT Internal Medicine; ATTEND Internal Medicine
DX: I48.91 Unspecified atrial fibrillation (principal); I50.32 Chronic diastolic (congestive) heart failure; I11.0 Hypertensive heart disease with heart failure; E78.5 Hyperlipidemia, unspecified; K21.9 Gastro-esophageal reflux disease without esophagitis; K57.90 Diverticulosis of intestine, part unspecified, without perforation or abscess without bleeding; Z79.52 Long term (current) use of systemic steroids; J45.909 Unspecified asthma, uncomplicated; Z20.822 Contact with and (suspected) exposure to COVID-19
CPT/HCPCS: 36415; 71046; 80048; 80053; 83735; 83880; 84100; 84439; 84443; 85025; 93005; 93306; J1160; J7512; U0003

== ENCOUNTER 2022-01-01 06:56 | Day surgery (SDC) | payer OTHER ==
[2022-01-01] MEDS ORDERED: Ringers Lactate 1,000 ML IV ONE (07:18)
[2022-01-01] MEDS ORDERED: LIDOCAINE 4% TOP SOLUTION ONE (07:31)
[2022-01-01] MEDS ORDERED: GLYCOPYRROLATE 0.2 MG/ML SYR ONE (07:31)
[2022-01-01] MEDS ORDERED: Phenylephrine HCl 10 MG/ML 1 ML VIAL ONE (07:32)
[2022-01-01] MEDS ORDERED: LIDOCAINE VISCOUS 2% SOLN 15 ML UDC ONE (07:35)
[2022-01-01] MEDS ORDERED: LIDOCAINE 1% MPF 30 ML VIAL ONE (07:35)
[2022-01-01] MEDS ORDERED: FENTANYL CITR 100 MCG/2 ML ONE (07:59)
[2022-01-01] MEDS ORDERED: propofoL 200 MG/20 ML VIAL IV ONE (07:59)
[2022-01-01] MEDS ORDERED: LIDOCAINE 1% MPF 5 ML VIAL ONE (07:59)
--- NOTE | 2022-01-01 08:16 | P.OP ---
Date of Service: 01/01/22 (Bronchoscopy) Findings and Operative Technique Patient is 81 years of age admitted with a chronic cough productive phlegm CT scan showed a partial left lower lobe atelectasis with some bronchiectasis this morning patient told me that her cough is improved sputum cultures AFB negative sputum cultures inadequate so far After obtaining informed consent from the patient she was premedicated by anesthesia findings normal vocal cords normal trachea normal Kathie normal right and left-sided bronchial anatomy no endobronchial lesions visible mucosa was completely normal patient did have purulent secretions predominantly in the right side of her lungs some on the left side regimens were not sent for cultures mild desaturation otherwise she did well
[2022-01-01 09:25] VITALS: BP 132/60; TEMP 97.1; O2SAT 100
== END 2022-01-01 09:15 | disposition home or self-care (01) ==
LOC: OR 06:56
PROVIDERS: ATTEND Internal Medicine Sleep Medicine
PROC: 0BJ08ZZ Inspection of Tracheobronchial Tree, Via Natural or Artificial Opening Endoscopic (ICD-10-PCS; principal; 2022-01-01 08:00)
DX: R05.3 Chronic cough (principal); J98.11 Atelectasis; J47.9 Bronchiectasis, uncomplicated; Z20.822 Contact with and (suspected) exposure to COVID-19
CPT/HCPCS: 31622; U0003; J2704; J2370; J3010; J7120

== ENCOUNTER 2025-06-05 14:48 | Observation (INO) | payer OTHER, BC ==
[2025-06-05] MEDS ORDERED: ASPIRIN EC 81 MG TAB PO ONE (15:09)
[2025-06-05] MEDS ORDERED: NA CHLORIDE 0.9% 500 ML ONE (15:09)
[2025-06-05] MEDS ORDERED: FAMOTIDINE 20 MG/2 ML VIAL IV ONE (15:09)
[2025-06-05 15:31] LABS: Absolute Lymphocytes (CBC) 1.8 K/uL (0.7-4.9); Hematocrit 38.2 % (36.0-45.0); Hemoglobin 12.8 g/dL (12.0-15.0); MCH 29.2 pg (27.0-35.0); MCHC 33.5 g/dL (32.0-36.0); MCV 87.1 fL (80-100); MPV 9.9 fL (7.6-11.3); Nucleated RBC Absolute Count 0.0 (0-0); Nucleated Red Blood Cells % 0.1 % (0-0); RBC Red Blood Cell Count 4.39 M/uL (3.86-4.86); White Blood Count 6.50 thou/uL (4.3-10.9)
[2025-06-05] MEDS ORDERED: FENTANYL CITR 100 MCG/2 ML ONE (15:31)
[2025-06-05] MEDS ORDERED: ONDANSETRON 4 MG/2 ML VIAL ONE ×2 (15:31→15:33)
--- NOTE | 2025-06-05 15:40 | RAD REPORT ---
EXAM: Chest Single View HISTORY: 84 years Female CHEST PAIN COMPARISON: 05/24/2023 FINDINGS: LUNGS/PLEURA: The lungs are clear. No pleural effusions or pneumothorax. No pulmonary edema. CARDIAC/MEDIASTINUM: Moderate hiatal hernia. UPPER ABDOMEN: No significant abnormality. BONES: No acute abnormality. Vertebroplasty changes in the spine. LINES/TUBES/OTHER: N/A IMPRESSION: No evidence of acute cardiopulmonary disease.
[2025-06-05 15:41] LABS: PT Prothrombin Time 15.0 SECONDS (10-13.0); Protime INR 1.34
[2025-06-05 15:52] LABS: ALT/SGPT 24.0 U/L (13-56); AST/SGOT 21.0 U/L (15-37); Albumin 3.0 g/dL (3.4-5.0); Albumin/Globulin Ratio 0.8 (1.1-1.8); Alkaline Phosphatase 76.0 U/L (45-117); Anion Gap 11.0 mEq/L (5.0-15.0); BUN Blood Urea Nitrogen 28.0 mg/dL (7-18); Bilirubin Indirect, Calculated 0.4 mg/dL (0.2-0.8); Globulin 3.9 g/dL (2.3-3.5); Glucose Level 111.0 mg/dL (74-106); Lipase 42.0 U/L (13-75); Magnesium 1.8 mg/dL (1.6-2.4); NT PRO-BNP 519.0 pg/mL (<450); Potassium 4.0 mEq/L (3.5-5.1); Troponin High Sensitivity 6.0 pg/mL (<58.9)
[2025-06-05 16:04] LABS: Sqamous Epithelial None Seen /HPF (None Seen); Urine Culture Reflex Order NOT NEEDED; Urine Microscopic Reflex YN ORDER UMIC
--- NOTE | 2025-06-05 16:06 | ER ---
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 STARTED WHILE EATING LUNCH. db SUDDEN PAIN WITH N/V AND UPPER ABD PAIN. APPEARS IN PAIN. Coronavirus screen: Client denies travel out of the [place] in the last 14 days. At this time, the client does not indicate any symptoms associated with coronavirus-19. Ebola Screen: Patient negative for fever greater than or equal to 101.5 degrees Fahrenheit, and additional compatible Ebola Virus Disease symptoms Patient denies exposure to infectious person. Patient denies travel to an Ebola-affected area in the 21 days before illness onset. No symptoms or risks identified at this time. Initial Sepsis Screen: Does the patient meet any 2 criteria? No. Patient's initial sepsis screen is negative. Does the patient have a suspected source of infection? No. Patient's initial sepsis screen is negative. Risk Assessment: Do you want to hurt yourself or someone else? Patient reports no desire to harm self or others. 14:57 Method Of Arrival: Ambulatory db 14:58 Onset of symptoms was June 05, 2025. db 14:58 Acuity: REY 2 db Triage Assessment: 14:58 General: Appears in no apparent distress. uncomfortable, Behavior is cooperative, db anxious. Pain: Complains of pain in chest and abdomen Pain radiates to chest. Neuro: Level of Consciousness is awake, alert, obeys commands, Oriented to person, place, time, situation. Cardiovascular: Reports chest pain. Historical: - Allergies: 14:58 No Known Allergies; db - PMHx: 14:58 Hyperlipidemia; a fib (Hypertension); Hypertension; db - Immunization history:: Adult Immunizations unknown. - Infectious Disease History:: Denies. - Social history:: Smoking status: Patient denies any tobacco usage or history of. - Family history:: not pertinent. Screenin:20 [facility] ED Fall Risk Assessment (Adult) History of falling in the last 3 months, kj2 including since admission No falls in past 3 months (0 pts) Confusion or Disorientation No (0 pts) Intoxicated or Sedated No (0 pts) Impaired Gait No (0 pts) Mobility Assist Device Used No (0 pt) Altered Elimination No (0 pt) Score/Fall Risk Level 0 - 2 = Low Risk Maintained a safe environment, Hourly rounding (assess needs \T\ fall precautionary measures) done. Abuse screen: Denies threats or abuse. Denies injuries from another. Nutritional screening: No deficits noted. Tuberculosis screening: No symptoms or risk factors identified. Assessment: 15:15 General: Appears in no apparent distress. Behavior is cooperative. Pain: Complains of kj2 pain in abdomen and chest Pain currently is 6 out of 10 on a pain scale. Neuro: Level of Consciousness is awake, alert, obeys commands, Oriented to person, place, time, situation. Cardiovascular: Reports chest pain. Respiratory: Airway is patent Respiratory effort is even, unlabored. GI: Reports nausea. : No signs and/or symptoms were reported regarding the genitourinary system. 15:15 Pain: Pain began 2 hours ago. kj2 16:08 Reassessment: Patient appears in no apparent distress at this time. Patient and/or kj2 family updated on plan of care and expected duration. Pain level reassessed. Patient is alert, oriented x 3, equal unlabored respirations, skin warm/dry/pink. 17:19 Reassessment: Patient appears in no apparent distress at this time. Patient and/or kj2 family updated on plan of care and expected duration. Pain level reassessed. Patient is alert, oriented x 3, equal unlabored respirations, skin warm/dry/pink. Vital Signs: 14:57 BP 154 / 73 LA; Pulse 71; Resp 18; Temp 97.9(O); Pulse Ox 99% ; Weight 65.77 kg; Height db 5 ft. 0 in. ; 14:58 BP 168 / 87 RA; db 15:20 BP 168 / 87; Pulse 71; Resp 20; Pulse Ox 97% on R/A; kj2 16:20 BP 150 / 78; Pulse 71; Resp 18; Pulse Ox 96% ; kj2 17:30 BP 127 / 60; Pulse 66; Resp 20; Pulse Ox 100% on R/A; kj2 14:57 Body Mass Index 28.32 (65.77 kg, 152.40 cm) db ED Course: 14:50 Patient arrived in ED. cj3 14:54 Deisy Murry, RN is Primary Nurse. kj2 14:56 Abhishek Lomeli MD is Attending Physician. [facility] 14:58 Triage completed. db 14:58 Arm band placed on Patient placed in an exam room. db 15:15 Patient has correct armband on for positive identification. Bed in low position. Call kj2 light in reach. Provided Education on: call light. Client placed on continuous cardiac and pulse oximetry monitoring. NIBP monitoring applied. rubber block layer on. Pulse ox on. NIBP on. 15:15 Inserted saline lock: 20 gauge in right antecubital area, using aseptic technique. kj2 Blood collected. Flushed with 10 mL NS. Patient maintains SpO2 saturation greater than 95% on room air. 15:31 XRAY Chest (1 view) In Process Unspecified. EDMS 16:04 Cresencio Ambrosio MD is Hospitalizing Provider. [facility] 16:19 CT Chest, Abdomen, Pelvis - W/Contrast In Process Unspecified. EDMS 17:52 No provider procedures requiring assistance completed. kj2 18:06 Patient admitted, IV remains in place. kj2 Administered Medications: 15:05 Drug: Aspirin PO Chewable Tablet 162 mg PO once Route: PO; kj2 17:50 Follow up: Response: No adverse reaction kj2 15:26 Drug: NS 0.9% IV 500 ml 500 ml IV at 1 bolus once; to be given as a bolus over 30 kj2 minutes Volume: 500 ml; Route: IV; Rate: 1 bolus; Site: right antecubital; 17:50 Follow up: IV Status: Completed infusion; IV Intake: 1000ml kj2 15:26 Drug: Famotidine IVP 20 mg IVP once; dilute with 10 mL 0.9% NaCl; give over 2 minutes kj2 Route: IVP; Site: right antecubital; 17:50 Follow up: Response: No adverse reaction kj2 15:45 Drug: fentaNYL (PF) IVP 25 mcg IVP once Route: IVP; Site: right antecubital; kj2 17:49 Follow up: Response: No adverse reaction kj2 15:45 Drug: Ondansetron IVP 8 mg IVP once; over 2 minutes Route: IVP; Site: right antecubital;kj2 17:49 Follow up: Response: No adverse reaction kj2 17:03 Drug: Rocephin IV 1 grams IV at per protocol once; Given slow IV push per pharmacy kj2 instructions Route: IV; Rate: per protocol; Site: right antecubital; 17:49 Follow up: IV Status: Completed infusion kj2 17:05 Not Given (Patient Refused): fentanyl (pf)25 mcg IVP once kj2 Medication: 17:20 VIS not applicable for this client. kj2 Intake: 17:50 IV: 1000ml; Total: 1000ml. kj2 Outcome: 16:05 Decision to Hospitalize by Provider. willy 18:06 Admitted to Tele accompanied by tech, via stretcher, room 405, kj2 18:06 Condition: stable 18:06 Instructed on the need for admit, 18:06 Patient left the ED. kj2 Signatures: Dispatcher [employer] EDAbhishek Arshad MD MD cha Benton, Danielle, RN RN Deisy Domingo, SANDRA RN kj2 Cheryl Nuñez cj3 Corrections: (The following items were deleted from the chart) 16:08 16:06 BP 168 / 87; Pulse 71bpm; Resp 20bpm; Pulse Ox 97% RA; kj2 kj2
--- NOTE | 2025-06-05 16:06 | EDPHYS ---
Physician Documentation [facility] Name: Shama Boyer Age: 84 yrs Sex: Female : 1940 Arrival Date: 06/05/2025 Time: 14:48 Bed 13 Private MD: ED Physician Abhishek Lomeli HPI: 06/05 15:26 This 84 yrs old Female presents to ER via Ambulatory with complaints of Chest willy Pain, Nausea/Vomiting. 15:26 The patient or guardian reports chest pain that is located primarily in the substernal willy area, anterior chest wall, bilaterally. Onset: just prior to arrival. The pain does not radiate. Associated signs and symptoms: Pertinent positives: abdominal pain, nausea, vomiting. The chest pain is described as a pressure. Modifying factors: The symptoms are alleviated by nothing. the symptoms are aggravated by nothing. Severity of pain: At its worst the pain was moderate in the emergency department the pain is unchanged. The patient has not experienced similar symptoms in the past. Historical: - Allergies: 14:58 No Known Allergies; db - PMHx: 14:58 Hyperlipidemia; a fib (Hypertension); Hypertension; db - Immunization history:: Adult Immunizations unknown. - Infectious Disease History:: Denies. - Social history:: Smoking status: Patient denies any tobacco usage or history of. - Family history:: not pertinent. ROS: 15:26 Constitutional: Negative for fever, chills, and weight loss, Eyes: Negative for injury, willy pain, redness, and discharge, ENT: Negative for injury, pain, and discharge, Neck: Negative for injury, pain, and swelling, Respiratory: Negative for shortness of breath, cough, wheezing, and pleuritic chest pain, Back: Negative for injury and pain, : Negative for injury, bleeding, discharge, and swelling, MS/Extremity: Negative for injury and deformity, Skin: Negative for injury, rash, and discoloration, Neuro: Negative for headache, weakness, numbness, tingling, and seizure, Psych: Negative for depression, anxiety, suicide ideation, homicidal ideation, and hallucinations, Allergy/Immunology: Negative for hives, rash, and allergies, Endocrine: Negative for neck swelling, polydipsia, polyuria, polyphagia, and marked weight changes, Hematologic/Lymphatic: Negative for swollen nodes, abnormal bleeding, and unusual bruising, 15:26 Cardiovascular: Positive for chest pain, with movement, of the chest and abdomen, 15:26 Abdomen/GI: Positive for abdominal pain, nausea and vomiting, Exam: 15:26 Constitutional: This is a well developed, well nourished patient who is awake, alert, willy and in no acute distress. Head/Face: Normocephalic, atraumatic. Eyes: Pupils equal round and reactive to light, extra-ocular motions intact. Lids and lashes normal. Conjunctiva and sclera are non-icteric and not injected. Cornea within normal limits. Periorbital areas with no swelling, redness, or edema. ENT: Nares patent. No nasal discharge, no septal abnormalities noted. Tympanic membranes are normal and external auditory canals are clear. Oropharynx with no redness, swelling, or masses, exudates, or evidence of obstruction, uvula midline. Mucous membranes moist. Neck: Trachea midline, no thyromegaly or masses palpated, and no cervical lymphadenopathy. Supple, full range of motion without nuchal rigidity, or vertebral point tenderness. No Meningismus. Chest/axilla: Normal chest wall appearance and motion. Nontender with no deformity. No lesions are appreciated. Cardiovascular: Regular rate and rhythm with a normal S1 and S2. No gallops, murmurs, or rubs. Normal PMI, no JVD. No pulse deficits. Respiratory: Lungs have equal breath sounds bilaterally, clear to auscultation and percussion. No rales, rhonchi or wheezes noted. No increased work of breathing, no retractions or nasal flaring. Abdomen/GI: Soft, non-tender, with normal bowel sounds. No distension or tympany. No guarding or rebound. No evidence of tenderness throughout. Back: No spinal tenderness. No costovertebral tenderness. Full range of motion. Female : Normal external genitalia. Skin: Warm, dry with normal turgor. Normal color with no rashes, no lesions, and no evidence of cellulitis. MS/ Extremity: Pulses equal, no cyanosis. Neurovascular intact. Full, normal range of motion., bilateral aka Neuro: Awake and alert, GCS 15, oriented to person, place, time, and situation. Cranial nerves II-XII grossly intact. Motor strength 5/5 in all extremities. Sensory grossly intact. Cerebellar exam normal. Normal gait. Psych: Awake, alert, with orientation to person, place and time. Behavior, mood, and affect are within normal limits. 15:26 ECG was reviewed by the Attending Physician. Vital Signs: 14:57 BP 154 / 73 LA; Pulse 71; Resp 18; Temp 97.9(O); Pulse Ox 99% ; Weight 65.77 kg; Height db 5 ft. 0 in. ; 14:58 BP 168 / 87 RA; db 15:20 BP 168 / 87; Pulse 71; Resp 20; Pulse Ox 97% on R/A; kj2 16:20 BP 150 / 78; Pulse 71; Resp 18; Pulse Ox 96% ; kj2 17:30 BP 127 / 60; Pulse 66; Resp 20; Pulse Ox 100% on R/A; kj2 14:57 Body Mass Index 28.32 (65.77 kg, 152.40 cm) db MDM: 14:56 Medical Screening Exam initiated willy 15:30 Differential diagnosis: abnormal EKG, acute myocardial infarction, acute pericarditis, willy anxiety, coronary artery disease chest wall pain, costochondritis, esophagitis, gastritis, herpes zoster, hiatal hernia, pancreatitis, peptic ulcer disease, pericarditis, pleurisy, pneumonia, pneumothorax, pulmonary embolus, stable angina, thoracic aortic disection, unstable angina. HEART Score: History: Slightly Suspicious (0), ECG: Non specific repolarization disturbance / LBTB / PM (1), Age: > or = 65 years (2), Risk Factors: > or = 3 Risk factors for atherosclerotic disease (2), [Hypercholesterolemia] [Hypertension] [+ Family HX] [Obesity] Troponin: < or = 1 x Normal Limit (0). The patient was given aspirin in the Emergency Department. MAGNOLIA Risk Score: 1 - patient's age is greater or equal to 65 years, 1 - Three or more CAD risk factors, 1- Known CAD, 1 - Recent [<24hrs] Severe Angina, TOTAL SCORE = 4. Data reviewed: vital signs, nurses notes, EMS record, lab test result(s), EKG, radiologic studies, CT scan, plain films. Consideration of Admission/Observation Patient was admitted/placed on observation. Escalation of care including admission/observation considered. I considered the following discharge prescriptions or medication management in the emergency department Medications were administered in the Emergency Department. See MAR. Independent interpretation of the following test(s) in the Emergency Department EKG: See my EKG interpretation above. Test considered but Not performed: Ultrasound NO 2 D ECHO. Historians other than the Patient: Spouse/Significant Other: WELL INFORMED. 06/05 14:57 Order name: Basic Metabolic Panel; Complete Time: 16:02 [facility] 06/05 14:57 Order name: CBC with Diff; Complete Time: 16:02 [facility] 06/05 14:57 Order name: LFT's; Complete Time: 16:02 [facility] 06/05 14:57 Order name: Magnesium; Complete Time: 16:02 [facility] 06/05 14:57 Order name: NT PRO-BNP; Complete Time: 16:02 [facility] 06/05 14:57 Order name: PT-INR; Complete Time: 16:02 [facility] 06/05 14:57 Order name: Troponin HS; Complete Time: 16:02 [facility] 06/05 14:57 Order name: Lipase; Complete Time: 16:02 [facility] 06/05 14:57 Order name: UA Rfx Crispin Cult if indicated [facility] 06/05 14:57 Order name: XRAY Chest (1 view); Complete Time: 16:02 [facility] 06/05 15:25 Order name: CT Chest, Abdomen, Pelvis - W/Contrast [facility] 06/05 16:12 Order name: CONS Physician Consult EDTX 06/05 14:57 Order name: Cardiac monitoring; Complete Time: 15:26 [facility] 06/05 14:57 Order name: EKG - Nurse/Tech; Complete Time: 15:26 [facility] 06/05 14:57 Order name: IV Saline Lock; Complete Time: 15:39 [facility] 06/05 14:57 Order name: Labs collected and sent; Complete Time: 15:26 [facility] 06/05 14:57 Order name: O2 Per Protocol; Complete Time: 15:26 [facility] 06/05 14:57 Order name: O2 Sat Monitoring; Complete Time: 15:26 [facility] EC:26 Rate is 69 beats/min. Rhythm is regular. QRS Nelson is Normal. NC interval is normal. QRS willy interval is normal. QT interval is normal. No Q waves. T waves are Normal. T waves are Inverted in leads V1, V2, V3, V4. No ST changes noted. Clinical impression: NSR w/ Non-specific ST/T Changes. Interpreted by me. Reviewed by me. Administered Medications: 15:05 Drug: Aspirin PO Chewable Tablet 162 mg PO once Route: PO; kj2 17:50 Follow up: Response: No adverse reaction kj2 15:26 Drug: NS 0.9% IV 500 ml 500 ml IV at 1 bolus once; to be given as a bolus over 30 kj2 minutes Volume: 500 ml; Route: IV; Rate: 1 bolus; Site: right antecubital; 17:50 Follow up: IV Status: Completed infusion; IV Intake: 1000ml kj2 15:26 Drug: Famotidine IVP 20 mg IVP once; dilute with 10 mL 0.9% NaCl; give over 2 minutes kj2 Route: IVP; Site: right antecubital; 17:50 Follow up: Response: No adverse reaction kj2 15:45 Drug: fentaNYL (PF) IVP 25 mcg IVP once Route: IVP; Site: right antecubital; kj2 17:49 Follow up: Response: No adverse reaction kj2 15:45 Drug: Ondansetron IVP 8 mg IVP once; over 2 minutes Route: IVP; Site: right antecubital;kj2 17:49 Follow up: Response: No adverse reaction kj2 17:03 Drug: Rocephin IV 1 grams IV at per protocol once; Given slow IV push per pharmacy kj2 instructions Route: IV; Rate: per protocol; Site: right antecubital; 17:49 Follow up: IV Status: Completed infusion kj2 17:05 Not Given (Patient Refused): fentanyl (pf)25 mcg IVP once kj2 Disposition Summary: 06/05/25 16:05 Hospitalization Ordered Notes: Hospitalization Status: Observation willy Provider: Cresencio Ambrosio cha [facility] willy Condition: Stable willy Problem: new willy Symptoms: have improved willy Bed/Room Type: Standard willy Room Assignment: 405(06/05/25 16:19) eb Diagnosis - Chest pain, unspecified willy - Nausea with vomiting, unspecified willy - Epigastric abdominal tenderness willy - 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 EDMS EDMS 14:57 14:57 CBC+H.LAB.BRZ ordered. EDMS EDMS 14:57 14:57 HEPATIC FUNCTION+C.LAB.BRZ ordered. EDMS EDMS 14:57 14:57 MAGNESIUM+C.LAB.BRZ ordered. EDMS EDMS 14:57 14:57 PROBNP+C.LAB.BRZ ordered. EDMS EDMS 14:57 14:57 PROTIME (+INR)+COAG.LAB.BRZ ordered. EDMS EDMS 14:57 14:57 Troponin High Sensitivity+C.LAB.BRZ ordered. EDMS EDMS 14:57 14:57 LIPASE+C.LAB.BRZ ordered. EDMS EDMS 14:57 14:57 UA Rfx Crispin Cult if indicated+U.LAB.BRZ ordered. EDMS EDMS 14:57 14:57 Chest Single View+RAD.RAD.BRZ ordered. EDMS EDMS 15:26 15:26 Chest Abdomen Pelvis W Con+CT.RAD.BRZ ordered. EDMS EDMS 16:19 16:05 willy eb
--- NOTE | 2025-06-05 16:38 | RAD REPORT ---
EXAM: Chest Abdomen Pelvis W Cont CLINICAL INDICATION: Female, 84 years CHEST PAIN TECHNIQUE: CT chest, abdomen and pelvis was performed, with IV contrast, as per department protocol. Axial, sagittal and coronal reconstructions were obtained. One or more of the following dose reduction techniques were used: Automated exposure control, adjustment of the mA and/or kV according to the patient size, and/or iterative reconstruction. Unless otherwise specified, incidental findings do not require dedicated imaging follow-up. [id number]. COMPARISON: No prior exams FINDINGS: ---THORAX--- LOWER NECK AND CHEST WALL: Visualized thyroid gland and soft tissues are normal. MEDIASTINUM AND LYMPH NODES: No mediastinal mass or fluid collection. Normal size mediastinal, hilar, and axillary lymph nodes. Moderate to large hiatal hernia. THORACIC AORTA: No thoracic aortic aneurysm. Atherosclerotic changes are present. PULMONARY ARTERIES: Caliber is within normal limits. No pulmonary emboli identified. HEART: Normal heart size. Moderate coronary artery calcifications. No significant pericardial effusio n. Aortic valve and mitral annular calcifications. LUNGS AND AIRWAYS: Airways are clear. No evidence of airspace or interstitial process. No suspicious and/or stable pulmonary nodules. PLEURA: No pleural effusion. No pneumothorax. ---ABDOMEN/PELVIS--- UPPER GI: Duodenal diverticulum noted. LIVER: No significant focal abnormality. GALLBLADDER/BILE DUCTS: Cholecystectomy. Mild extra-hepatic biliary ductal dilatation is likely relat ed to the post-cholecystectomy state. Consider correlating with LFT's.? PANCREAS: No mass, ductal dilation, or angel-pancreatic fluid. SPLEEN: Unremarkable. ADRENALS: No adrenal masses. KIDNEYS AND URETERS: No hydronephrosis.No suspicious renal mass.No renal calculi. No ureteral calculi . ABDOMINAL AORTA AND OTHER VESSELS: Moderate atherosclerotic changes without aortic aneurysm. PERITONEUM: No abnormal free fluid. No free air. LYMPH NODES: No pathologic lymphadenopathy. ABDOMINAL WALL: Small fat containing ventral and right lateral ventral hernia. SMALL BOWEL/COLON: Small bowel has normal course and caliber. No colonic wall thickening or pericolon ic inflammatory changes. Normal appendix. URINARY BLADDER: Underdistended but grossly unremarkable. REPRODUCTIVE ORGANS: No pathologic process. ---COMBINED--- MUSCULOSKELETAL: T12 vertebroplasty. No acute fractures identified. ADDITIONAL FINDINGS: None. IMPRESSION: No acute findings within the chest, abdomen, or pelvis. Moderate to large hiatal hernia.
[2025-06-05] MEDS ORDERED: CEFTRIAXONE 1000 MG/VIAL ONE (16:54)
[2025-06-05 18:21] VITALS: BMI 28.3
[2025-06-05] MEDS ORDERED: ONDANSETRON 4 MG/2 ML VIAL IV PRN (18:22)
[2025-06-05] MEDS ORDERED: MORPHINE 2 MG/ML SYR IV PRN (18:22)
[2025-06-05] MEDS ORDERED: ACETAMINOPHEN 500 MG TAB PO PRN (18:22)
[2025-06-05] MEDS: FAMOTIDINE 20 MG/2 ML VIAL IV SCH (20:38)
[2025-06-05] MEDS: APIXABAN 5 MG TABLET PO SCH (20:38)
[2025-06-05 21:25] VITALS: O2SAT 94
[2025-06-06 07:34] LABS: Absolute Lymphocytes (CBC) 1.4 K/uL (0.7-4.9); Hematocrit 34.5 % (36.0-45.0); Hemoglobin 11.6 g/dL (12.0-15.0); MCH 29.4 pg (27.0-35.0); MCHC 33.7 g/dL (32.0-36.0); MCV 87.4 fL (80-100); MPV 10.4 fL (7.6-11.3); Nucleated RBC Absolute Count 0.0 (0-0); Nucleated Red Blood Cells % 0.1 % (0-0); RBC Red Blood Cell Count 3.95 M/uL (3.86-4.86); White Blood Count 4.40 thou/uL (4.3-10.9)
[2025-06-06 07:53] LABS: Anion Gap 7.9 mEq/L (5.0-15.0); BUN Blood Urea Nitrogen 18.0 mg/dL (7-18); Glucose Level 92.0 mg/dL (74-106); Potassium 3.9 mEq/L (3.5-5.1)
[2025-06-06 08:30] VITALS: TEMP 97.7
[2025-06-06] MEDS: SOTALOL HCL 80 MG TAB PO SCH (08:46)
[2025-06-06] MEDS: LOSARTAN POTASSIUM 50 MG TABLET PO SCH (08:46)
[2025-06-06] MEDS ORDERED: FLU (Fluarix) 25-26 (6MOS UP)/PF 45 MCG/0.5 ML Syringe IM ONE (09:15)
[2025-06-06] MEDS ORDERED: PNEUMOCOCCAL VACCINE 0.5 ML IMVAC ONE (10:00)
--- NOTE | 2025-06-06 10:55 | P.CNS ---
Date of Consult: 06/06/25 Chief Complaint: chest pain History of Present Illness: Patient with PMH of atrial fibrillation, presented with abdominal pain, nausea and vomiting, denies chest pain, no palpitations, no syncope. Allergies No Known Allergies Allergy (Verified 01/01/22 07:59) Home medications list reviewed: Yes Home Medications: Albuterol Sulfate [Ventolin Hfa] 2 puff IH Q6HP PRN 12/31/21 Amlodipine Besylate 5 mg PO DAILY 12/31/21 Apixaban [Eliquis] 5 mg PO BID 12/31/21 Bimatoprost [Lumigan Opthalmic Drops] 1 drop OP BEDTIME 12/31/21 Cetirizine HCl [Zyrtec] 10 mg PO DAILY 12/31/21 Fluticasone/Umeclidin/Vilanter [Trelegy Ellipta 200-62.5-25] 1 each IH DAILY 12/31/21 Furosemide [Lasix*] 20 mg PO DAILY 12/31/21 Montelukast Sodium [Singulair] 10 mg PO DAILY 12/31/21 Pantoprazole [Protonix Tab] 40 mg PO DAILY 12/31/21 Sotalol HCl [Betapace] 80 mg PO BID 12/31/21 Vit C/E/Zn/Coppr/Lutein/Zeaxan [Preservision Areds 2 Softgel] 1 each PO BID 12/31/21 carvediloL [Coreg] 3.125 mg PO BID 12/31/21 levoFLOXacin [Levaquin] 750 mg PO DAILY 12/31/21 predniSONE [Deltasone] 5 mg PO DAILY 12/31/21 - Past Medical/Surgical History Diabetic: No -: Hypertention -: High Cholesterol -: Right Knee Surgery - Family History Mother Medical History: Heart disease Notes: PT States she think she had hard failure. - Social History Alcohol use: Yes CD- Drugs: No Caffeine use: Yes Review of Systems 10-point ROS is otherwise unremarkable Physical Examination Temp Pulse Resp BP Pulse Ox 97.7 F 61 16 138/72 94 06/06/25 08:00 06/06/25 08:46 06/06/25 08:00 06/06/25 08:46 06/06/25 08:00 General: Alert, In no apparent distress HEENT: Atraumatic, PERRLA, Mucous membr. moist/pink, EOMI, Sclerae nonicteric Neck: Supple, 2+ carotid pulse no bruit, No LAD, Without JVD or thyroid abno rmality Respiratory: Clear to auscultation bilaterally, Normal air movement Cardiovascular: Regular rate/rhythm, Normal S1 S2 Gastrointestinal: Normal bowel sounds, No tenderness Musculoskeletal: No tenderness Integumentary: No rashes Neurological: Normal gait, Normal speech, Normal tone, Normal affect Lymphatics: No axilla or inguinal lymphadenopathy Laboratory Data (last 24 hrs) 06/05/25 06/05/25 06/05/25 15:25 15:25 15:25 WBC 6.50 Hgb 12.8 Hct 38.2 Plt Count 196 PT 15.0 H INR 1.34 Sodium 139 Potassium 4.0 BUN 28 H Creatinine 0.94 Glucose 111 H Magnesium 1.8 Total Bilirubin 0.6 AST 21 ALT 24 Alkaline Phosphatase 76 Lipase 42 - Problems (1) Atrial fibrillation Current Visit: Yes Status: Acute Plan: patient currently in sinus rhythm continue Sotalol and Eliquis (2) Chest pain Onset Date: 07/24/15 Current Visit: No Status: Acute Plan: atypical, cardiac enzymes are negative x3, abdominal in nature no need for further inpatient cardiac work up. (3) HTN (hypertension) Current Visit: Yes Status: Acute Plan: continue losartan and HCTZ.
[2025-06-06 12:26] VITALS: BP 164/73
[2025-06-07] MEDS ORDERED: PANTOPRAZOLE 40MG TABLET PO SCH (06:30)
--- NOTE | 2025-06-07 09:38 | SS ---
Date of Discharge: 06/06/2025 Chief Complaint: Abdominal pain. History Of Present Illness: This is an 84-year-old female patient, who was doing fine in her normal usual state of health until yesterday. She came into emergency room with abdominal pain all across h er upper abdomen and all across her lower chest. The patient says that she was eating and after eati ng few bites, all of a sudden she felt like she could not eat anymore because of this pain that start ed and got nauseated. Denies any fever, chills, constipation, or diarrhea. Denies any dysphagia. S he had similar episode few times this year, previous episode was 1 month ago. At this time, she deci ded to come to emergency room and after she was evaluated, she was admitted to the hospital. She has not had any recurrence of either chest pain or abdominal pain after her hospital admission. Physical Examination: Vital Signs: Temperature 97.5, pulse 61, respiratory rate 16, blood pressure 144/59, oxygen saturati on 95%. Height 5 feet, weight 145 pounds. General: Awake, alert, oriented, not in distress. HEENT: Head atraumatic, normocephalic. Conjunctivae nonerythematous. Sclerae white. Mouth, no thr ush or edema noted. Ears/Nose, no mass, lesion, discharge noted. Neck: Supple. No JVD, lymph nodes, bruit, thyromegaly noted. Lungs: Bilateral good equal air entry. Clear to auscultation. No rhonchi. No rales. Heart: Normal heart sounds, no murmur or gallop. Abdomen: Soft, bowel sounds normal. No guarding, rigidity, tenderness, mass, hepatosplenomegaly, dis tention, or bruit noted. Extremities: No leg edema. No calf tenderness. Skin: No rash, ulcer, cellulitis. Lymphatics: No lymph node enlargement in neck, supraclavicular, infraclavicular region. Neuro: No focal neurological deficit. Chest: Unremarkable. External Genitalia: Deferred. Rectal: Deferred. Laboratory Data: WBC 6.5, hemoglobin 12.8, platelets 196. Sodium 139, potassium 4, chloride 104, bi carb 28, BUN 28, creatinine 0.94, glucose 111. Liver function tests unremarkable. First troponin 6, second troponin 5.9, and third troponin 7. Lipase 42. Urinalysis negative except leukocyte esteras e 75. CAT scan of chest, abdomen, and pelvis done in the emergency room with contrast shows no acute findings, moderate to large hiatal hernia. Chest x-ray, no acute intrathoracic changes. Hospital Course: After the patient was evaluated in the emergency room, she was admitted to the hosp ital with this chest pain and upper abdominal pain. Overnight, her condition has remained stable. W hen I saw her, she was asymptomatic. She has not had any recurrence of this pain since her admission . Her pain appears more of GI in origin than cardiac. Cardiology consultation was requested from Dr Venu Gooden and he did evaluate the patient today and I did communicate with him regarding details after he evaluated and he also agrees with likelihood source of this pain is GI in origin. I have communi cated all the details with the patient when I saw her and suggested her to start proton pump inhibito r therapy as it was started this morning and I will see her as outpatient sometime next week and we w ill request her to have a followup with range master for consideration of upper endoscopy proce katie. The patient had a cardiac cath done in 2020 showing normal coronaries. This result was review ed and discussed with machining and assembly supervisor as well. Total time spent 65 minutes including review of cardiac catheterization report from 2020, review of [facility] hospital admission record from October 11, 2021, communication with emergency room physician, re view of emergency room visit record, and performing today's evaluation and management as such as comm unication with the machining and assembly supervisor. Final Diagnoses: 1. Chest pain. 2. Upper abdominal pain. 3. Paroxysmal atrial fibrillation. 4. Chronic anticoagulation therapy. 5. Hypertension. 6. Chronic diastolic heart failure. 7. Hyperlipidemia. 8. Impaired fasting glucose. 9. Gastroesophageal reflux disease. 10. Diverticulosis. NORM/MODL Voice ID: [id number] Report ID: [id number]
== END 2025-06-06 12:00 | disposition home or self-care (01) ==
LOC: ER 14:48 → ERHOLD 16:08 → 4TH 17:35
PROVIDERS: ADMIT Internal Medicine; ATTEND Internal Medicine
DX: R07.9 Chest pain, unspecified (principal); R10.13 Epigastric pain; R11.2 Nausea with vomiting, unspecified; I48.0 Paroxysmal atrial fibrillation; I10 Essential (primary) hypertension; I50.32 Chronic diastolic (congestive) heart failure; K21.9 Gastro-esophageal reflux disease without esophagitis; E78.5 Hyperlipidemia, unspecified; K57.90 Diverticulosis of intestine, part unspecified, without perforation or abscess without bleeding; N39.0 Urinary tract infection, site not specified; Q40.1 Congenital hiatus hernia; Z79.01 Long term (current) use of anticoagulants; Z23 Encounter for immunization
CPT/HCPCS: 96365; 96361; 93005; 85025 ×2; 81001; 80048 ×2; 36415; 83735; 85610; 80076; 84484 ×3; 83690; 83880; 71260; 74177; 71045; 96375; 99285; Q9967; J3010; J2405 ×2; J7040; J0696; G0378 ×4